=== PATIENT | male | born 1940 | race Caucasian/White ===

== ENCOUNTER 2019-10-24 15:14 | Inpatient (IN) | payer OTHER ==
--- NOTE | 2019-10-24 15:29 | PDOC ---
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 Pt had fever 101 this morning, emesisx1 yesterday . Epigastric pain constant, not exacerbated by meals or exertion. Pt drinks alcohol currently. Pt has been taking 650mg tylenol x1 everyday for the past few days without pain relief. Currently denies cough, nausea, chest pain, SOB, urinary changes, diarrhea/constipation. Past History - Past Medical History Allergies/Adverse Reactions: Allergies Allergy/AdvReac Type Severity Reaction Status Date / Time No Known Allergies Allergy Verified 10/24/19 16:18 Home Medications: Ambulatory Orders Folic Acid 1 mg PO DAILY 10/24/19 Furosemide 20 mg PO DAILY 10/24/19 Glipizide 10 mg PO BID 10/24/19 Metoprolol Succinate [Toprol Xl] 25 mg PO DAILY 10/24/19 Anemia: Yes Asthma: No Cancer: No Cardiac Disorders: No CVA: No COPD: No CHF: No Dementia: No Diabetes: Yes GI Disorders: Yes Disorders: No HTN: No Hypercholesterolemia: No Liver Disease: Yes Seizures: No Thyroid Disease: No - Surgical History Abdominal Surgery: No Appendectomy: No Cholecystectomy: No Lung Surgery: No Neurologic Surgery: No Orthopedic Surgery: No - Immunization History Immunization Up to Date: Yes - Psycho Social/Smoking Cessation Hx Smoking History: Never smoked Have you smoked in the past 12 months: No Information on smoking cessation initiated: No Hx Alcohol Use: No Drug/Substance Use Hx: No Substance Use Type: Alcohol Hx Substance Use Treatment: No Review of Systems - Review of Systems Able to Perform ROS?: Yes Constitutional: No: Chills, Fever HEENTM: No: Eye Pain, Nose Pain, Throat Pain, Mouth Pain Respiratory: No: Cough, Shortness of Breath Cardiac (ROS): No: Chest Pain, Palpitations, Syncope ABD/GI: Yes: Poor Appetite. No: Abdominal Distended, Constipated, Diarrhea, Nausea, Vomiting : No: Burning, Dysuria, Discharge, Frequency Musculoskeletal: No: Joint Pain, Neck Pain Integumentary: No: Bruising, Flushing, Lesions Neurological: No: Headache, Seizure, Tingling Psychiatric: No: Anxiety, Depression, Stressors Endocrine: No: Excessive Sweating, Flushing, Intolerance to Cold, Intolerance to Heat Hematologic/Lymphatic: No: Anemia, Easy Bleeding *Physical Exam - Vital Signs Last Vital Signs Temp Pulse Resp BP Pulse Ox 98.5 F 79 16 119/73 98 10/24/19 15:22 10/24/19 15:22 10/24/19 15:22 10/24/19 15:22 10/24/19 15:22 - Physical Exam General Appearance: Yes: Nourished, Appropriately Dressed, Mild Distress HEENT: positive: EOMI, ILA, Normal Voice, Scleral Icterus (R), Scleral Icterus (L), Hearing Grossly Normal. negative: Nasal Congestion, Rhinorrhea Respiratory/Chest: positive: Lungs Clear, Normal Breath Sounds. negative: Chest Tender, Respiratory Distress, Crackles, Rales, Rhonchi, Stridor, Wheezing Cardiovascular: positive: S1, S2, Tachycardia, Systolic Murmur, Irregular Gastrointestinal/Abdominal: positive: Normal Bowel Sounds, Tender (moderate tenderness L pelvic, mild tenderness epigastric), Distended (mild), Guarding (L pelvic), Rebound (L pelvic), Other (neg posada sign) Musculoskeletal: positive: CVA Tenderness (R). negative: CVA Tenderness (L) Integumentary: positive: Jaundice Neurologic: positive: back maker II-XII NML intact, Fully Oriented, Alert, Normal Mood/ Affect, Normal Response, Motor Strength 5/5, Responsive, Other (neg asterixis). 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 Ddx: cholangitis/cholelithiasis (fever, jaundice, stones on US) vs cirrhosis complication (elevated LFTs, bili) vs UTI (pelvic/CVA tenderness). Pt also has new onset afib w RVR on EKG, pt denying chest pain/SOB. HR ranging from 90-120. Low concern for pancreatitis (normal lipase) vs ACS (pain not changed w exertion , no ST changes on EKG) vs hepatic encephalopathy (pt AOx3, neg NH3). Trop likely d/t demand from a fib. Given 2L NS (30ml/kg = 2040mL), folic acid, thamine, 2 morphine, zofran w some pain relief. - pending 2nd trop, UA, CBC results (1st hemolyzed) - pending RUQ US, CT A/P Dispo dependent on imaging. Anticipate admit for possible cholelithiasis requiring cholecystectomy, new onset a fib Signed off to night team Discharge - Discharge Information Problems reviewed: Yes Clinical Impression/Diagnosis: Epigastric pain, Jaundice Condition: Stable - Follow up/Referral - Patient Discharge Instructions - Post Discharge Activity
[2019-10-24] MEDS ORDERED: morphine CARPU-JECT 4 MG/1 ML DISP.SYRIN IVPUSH ONE (15:53)
[2019-10-24] MEDS ORDERED: SODIUM CHLORIDE 0.9% 500 ML INFUS.BAG IV ONE ×3 (15:53→23:00)
[2019-10-24] MEDS ORDERED: ONDANSETRON 4 MG/2 ML VIAL IVPUSH ONE (16:19)
[2019-10-24] MEDS ORDERED: MORPHINE SULFATE 2 MG/ML VIAL ONE (16:24)
[2019-10-24] MEDS ORDERED: ONDANSETRON 4 MG/2 ML VIAL ONE (16:24)
--- NOTE | 2019-10-24 16:26 | PDOC ---
Documentation entered by Chitra Martinez SCRIBE, acting as scribe for Mariola Ovalle DO. Mariola Ovalle DO: This documentation has been prepared by the Juan noland Joy, SCRIBE, under my direction and personally reviewed by me in its entirety. I confirm that the documentation accurately reflects all work, treatment, procedures, and medical decision making performed by me. Attending Attestation - Resident Resident Name: Vasquez Mcdaniels - ED Attending Attestation I have performed the following: I have examined & evaluated the patient, The case was reviewed & discussed with the resident, I agree w/resident's findings & plan, Exceptions are as noted - HPI HPI: 10/24/19 16:32 The patient is an 78 year old male, with no significant PMH of gallstones, cirrhosis (hx of alcohol abuse), DM who presents to the emergency department with epigastric pain, fever, and chills for the last 3 days. As per patient, he stopped drinking but started again about a year ago and hides it from his family. Patient states he now drinks frequently. Patient states he has not seen his GI doctor in the [place] for the last 5 years. Patients family member reports a fever this morning of 101 F with x1 episode of nausea. Patient also adds he has had x1 episode of NBNB emesis yesterday. Patient reports having loose stool today but stool has been yellow for the last 3 days. Allergies: NKA - Physicial Exam PE: 10/24/19 16:20 gen: awake, alert, oriented, jaundiced heent: icterus, eomi, mmm neck: supple heart: +s1s2 tachy lungs: cta b/l abd: soft, nt/nd +bs ext: no c/c/e, no asterixis neuro: cn ii-xii grossly intact, FROM of all extremities, no focal deficits - Medical Decision Making 10/24/19 16:23 a/p: 78 yo male with n/v yesterday and fever at home of 101 today -pt arrives jaundiced, has been jaundiced x 3 days -c/o chills -nbnb vomitus -gallstones on ultrasound -hx of cirrhosis- has not followed with GI in over 5 years, jaundice had resolved, but per daughter she believes the patient is drinking again at home- not daily -not altered -pt denies abd pain at this time -no cough or dysuria -will send labs, ultrasound, ct, ivf hydration -will monitor and reassess 10/24/19 16:27 pt in afib 10/24/19 16:31 pt with new onset afib, suspect secondary to electrolytes, will monitor on tele Heart Score/ECG Review - ECG Intrepretation Comment:: 10/24/19 16:26 afibat 113, l axis, no acute st/t wave findings
[2019-10-24] MEDS ORDERED: THIAMINE HCL 200 MG/2 ML VIAL IVPB ONE (16:28)
[2019-10-24] MEDS ORDERED: FOLIC ACID 1 MG TABLET (FP) PO ONE (16:28)
[2019-10-24] MEDS ORDERED: FOLIC ACID 1 MG TABLET (FP) ONE (16:47)
[2019-10-24] MEDS ORDERED: THIAMINE HCL 200 MG/2 ML VIAL ONE (16:47)
[2019-10-24 16:52] LABS: VENOUS PC02 39.1 mmHg (38-52); VENOUS PH 7.41 (7.31-7.41); VENOUS PO2 < 49 mmHg (28-48)
[2019-10-24 17:06] LABS: INR 1.7 (0.83-1.09); PROTHROMBIN TIME (PATIENT) 20.2 SEC (9.7-13.0)
[2019-10-24 17:08] LABS: ACTIVATED PTT 36.1 SECONDS (25.2-36.5)
[2019-10-24 17:24] LABS: ALBUMIN 2.9 g/dl (3.4-5.0); BILIRUBIN,TOTAL 10.7 mg/dL (0.2-1); BLOOD UREA NITROGEN 37.3 mg/dL (7-18); CALCIUM 8.9 mg/dL (8.5-10.1); CREATININE 1.3 mg/dL (0.55-1.3); POTASSIUM 3.9 mmol/L (3.5-5.1); TOT PROT 6.1 g/dl (6.4-8.2)
[2019-10-24 17:36] LABS: LIPASE 49 U/L (73-393)
[2019-10-24 18:44] LABS: BASO % 0.2 % (0-2.0); EOS % 0.8 % (0-4.5); HEMATOCRIT 32.4 % (35.4-49); HEMOGLOBIN 10.5 GM/dL (11.7-16.9); LYMPH % 8.9 % (8-40); MCH 22.1 pg (25.7-33.7); MCHC 32.4 g/dl (32.0-35.9); MEAN CELL VOLUME 68.2 fl (80-96); MEAN PLT VOLUME 10.6 fl (7.5-11.1); MONO % 10.5 % (3.8-10.2); NEUT % 79.6 % (42.8-82.8); RBC 4.75 M/mm3 (4.00-5.60); RDW 16.4 % (11.9-15.9); WHITE BLOOD COUNT 4.7 K/mm3 (4.0-10.0)
[2019-10-24 18:50] LABS: EPI CELLS 2.3 /HPF (0-5/HPF); HYALINE CASTS 7 /lpf (0-8); URINE APPEARANCE CLEAR; URINE BACTERIA 25.5 /hpf (NEGATIVE); URINE BILIRUBIN 2+ (NEGATIVE); URINE COLOR DK YELLOW; URINE GLUCOSE (UA) 3+ (NEGATIVE); URINE KETONE TRACE (NEGATIVE); URINE LEUK ESTERASE TRACE (NEGATIVE); URINE NITRITE POSITIVE (NEGATIVE); URINE PROTEIN 1+ (NEGATIVE); URINE RBC 6 /hpf (0-4); URINE WBC 3 /hpf (0-5)
--- NOTE | 2019-10-24 19:14 | PDOC ---
*Physical Exam - Vital Signs Last Vital Signs Temp Pulse Resp BP Pulse Ox 98.5 F 79 16 119/73 98 10/24/19 15:22 10/24/19 15:22 10/24/19 15:22 10/24/19 15:22 10/24/19 15:22 ED Treatment Course - LABORATORY CBC & Chemistry Diagram: 10/24/19 18:20 10/24/19 16:40 - ADDITIONAL ORDERS Additional order review: Laboratory Results 10/24/19 10/24/19 10/24/19 18:20 16:40 16:40 PT with INR INR PTT (Actin FS) VBG pH 7.41 POC VBG pCO2 39.1 POC VBG pO2 < 49 H VBG HCO3 24.5 VBG O2 Sat (Johan) 37.6 L VBG Base Excess 0.5 Sodium Potassium Chloride Carbon Dioxide Anion Gap BUN Creatinine Est GFR (CKD-EPI)AfAm Est GFR (CKD-EPI)NonAf Random Glucose Lactic Acid Calcium Total Bilirubin AST ALT Alkaline Phosphatase Ammonia Creatine Kinase Troponin I Total Protein Albumin Lipase Urine Color Dk yellow Urine Appearance Clear Urine pH 5.0 Ur Specific [place] 1.034 Urine Protein 1+ H Urine Glucose (UA) 3+ H Urine Ketones Trace H Urine Blood 1+ H Urine Nitrite Positive H Urine Bilirubin 2+ H Urine Urobilinogen 2.0 Ur Leukocyte Esterase Trace Urine WBC (Auto) 3 Urine RBC (Auto) 6 Urine Casts (Auto) 7 U Epithel Cells (Auto) 2.3 Urine Bacteria (Auto) 25.5 Alcohol, Quantitative Blood Type A POSITIVE Antibody Screen Negative 10/24/19 10/24/19 10/24/19 16:40 16:40 16:40 PT with INR 20.20 H INR 1.70 H PTT (Actin FS) 36.1 VBG pH POC VBG pCO2 POC VBG pO2 VBG HCO3 VBG O2 Sat (Johan) VBG Base Excess Sodium 137 Potassium 3.9 Chloride 103 Carbon Dioxide 24 Anion Gap 10 BUN 37.3 H Creatinine 1.3 Est GFR (CKD-EPI)AfAm 59.73 Est GFR (CKD-EPI)NonAf 51.53 Random Glucose 253 H Lactic Acid Calcium 8.9 Total Bilirubin 10.7 H AST 271 H ALT 267 H Alkaline Phosphatase 79 Ammonia Creatine Kinase 115 Troponin I 0.12 H Total Protein 6.1 L Albumin 2.9 L Lipase 49 L Urine Color Urine Appearance Urine pH Ur Specific [place] Urine Protein Urine Glucose (UA) Urine Ketones Urine Blood Urine Nitrite Urine Bilirubin Urine Urobilinogen Ur Leukocyte Esterase Urine WBC (Auto) Urine RBC (Auto) Urine Casts (Auto) U Epithel Cells (Auto) Urine Bacteria (Auto) Alcohol, Quantitative < 3 Blood Type Antibody Screen 10/24/19 10/24/19 16:35 16:30 PT with INR INR PTT (Actin FS) VBG pH POC VBG pCO2 POC VBG pO2 VBG HCO3 VBG O2 Sat (Johan) VBG Base Excess Sodium Potassium Chloride Carbon Dioxide Anion Gap BUN Creatinine Est GFR (CKD-EPI)AfAm Est GFR (CKD-EPI)NonAf Random Glucose Lactic Acid 4.5 H* Calcium Total Bilirubin AST ALT Alkaline Phosphatase Ammonia < 10 L Creatine Kinase Troponin I Total Protein Albumin Lipase Urine Color Urine Appearance Urine pH Ur Specific [place] Urine Protein Urine Glucose (UA) Urine Ketones Urine Blood Urine Nitrite Urine Bilirubin Urine Urobilinogen Ur Leukocyte Esterase Urine WBC (Auto) Urine RBC (Auto) Urine Casts (Auto) U Epithel Cells (Auto) Urine Bacteria (Auto) Alcohol, Quantitative Blood Type Antibody Screen 10/24/19 10/24/19 18:20 16:10 RBC 4.75 Cancelled MCV 68.2 L Cancelled MCHC 32.4 Cancelled RDW 16.4 H Cancelled MPV Cancelled Neutrophils % 79.6 Cancelled Lymphocytes % 8.9 Cancelled Monocytes % 10.5 H Cancelled Eosinophils % 0.8 Cancelled Basophils % 0.2 Cancelled - Medications Given in the ED: ED Medications Discontinued Medications Generic Name Dose Route Start Last Admin Trade Name Tamia PRN Reason Stop Dose Admin Folic Acid 1 mg 10/24/19 16:28 10/24/19 16:55 Folic Acid - PO 10/24/19 16:29 1 mg ONCE ONE Administration Morphine Sulfate 2 mg 10/24/19 15:53 10/24/19 16:40 Morphine Injection - IVPUSH 10/24/19 15:54 2 mg ONCE ONE Administration Ondansetron HCl 4 mg 10/24/19 16:19 10/24/19 16:40 Zofran Injection IVPUSH 10/24/19 16:20 4 mg NOW ONE Administration Sodium Chloride 1,000 ml 10/24/19 15:53 10/24/19 16:40 Normal Saline - IV 10/24/19 15:54 1,000 ml ONCE ONE Administration Sodium Chloride 1,000 ml 10/24/19 17:50 10/24/19 17:52 Normal Saline - IV 10/24/19 17:51 1,000 ml ONCE ONE Administration Thiamine HCl 100 mg 10/24/19 16:28 10/24/19 16:55 Vitamin B1 Injection - IVPB 10/24/19 16:29 100 mg ONCE ONE Administration Medical Decision Making - Medical Decision Making 10/24/19 19:08 PCP: 78y M cirrhosis 2/2 EOTH, cholelithiasis, DM presenting with abd pain for 4 days. Jaundiced, elevated LFTs, fever, RUQ pain, negative posada, normal mentation, normal BP Afib RVR, new No ASA given hematuria F/u CT, RUQ F/u CBC, UA Second trop (initial 0.12, likely demand, no SOB/CP) Gallstones on bedside US Pre-op labs already ordered S/p 2L IVF (NS) 2 Morphine, Zofran HDS 10/24/19 19:23 - Thrombocytopenia plts 16 - No leukocytosis, at baseline anemia - Lact 4.5 - VBG unremarkable - LFTs elevated - INR 1.70 - Repeat troponin / lactate pending - UA with evidence of UTI and hematuria, pt denies symptoms - daughter reports he would never admit to symptoms 10/24/19 20:05 - Spoke with Dr. Lopez, Cardiology, patient is rate controlled and HDS, no need for anticoagulation in setting of rate control and thrombocytopenia, will see the patient tomorrow. 10/24/19 20:10 - Spoke with Hematology / Oncology train control electronic technician, recommended LDH, Haptoglobin, B12, Folate, Direct Bilirubin studies, Pt will likely require transfusion, especially if going to the OR 10/24/19 20:55 - Ceftriaxone 1g IV for UTI - 2U Plts given hematuria, cirrhosis (reduced synthetic function), and likely invasive procedure in near future - Pt consented for Plt transfusion 10/24/19 22:04 - US Resulted with known chronic hepatic parenchymal disease and "cholelithiasis , with thickened gallbladder wall, at which cholecystitis cannot be excluded. Nuclear hepatobiliary scan may be helpful for further evaluation" - CT with pericholecystic edema, minimal wall thickening -Patient currently receiving plts, ABX -Cardiology on board, Dr. Lopez -Heme/Onc on board, Dr. Valle service -F/u Surgery in the AM, no surgery train control electronic technician, plt too low for acute intervention overnight -Patient is hemodynamically stable at this time Dispo: Admit Tele 10/24/19 23:05 - Lact down-trended to 2.5, additional 1L IVF ordered - Troponin down to 0.09 s/p IVF - Intermittently tachy to 120s, asymptomatic Admitted Tele, sign-out given 10/24/19 23:39 -Call placed to [facility] for addendum to Brennan MCDONALD for commentary on portal vein -In house US reports that images sent to [facility] did contain PV evaluation Discharge - Discharge Information Problems reviewed: Yes Clinical Impression/Diagnosis: Epigastric pain, Jaundice, Troponin I above reference range, Lactic acidosis, New onset a-fib Cholelithiasis Qualifiers: Cholelithiasis location: gallbladder Cholecystitis presence: with cholecystitis Cholecystitis acuity: unspecified acuity Biliary obstruction: without biliary obstruction Qualified Code(s): K80.10 - Calculus of gallbladder with chronic cholecystitis without obstruction UTI (urinary tract infection) Qualifiers: Urinary tract infection type: site unspecified Hematuria presence: with hematuria Qualified Code(s): N39.0 - Urinary tract infection, site not specified Condition: Stable - Admission Yes - Follow up/Referral - Patient Discharge Instructions - Post Discharge Activity
[2019-10-24 19:20] LABS: PLATELET COUNT 16 K/MM3 (134-434)
[2019-10-24 19:21] LABS: ANISOCYTOSIS 1+; OVALOCYTE 1+; TARGET CELLS 1+
[2019-10-24 19:22] LABS: PLATELET ESTIMATE DECREASED
[2019-10-24] MEDS ORDERED: CEFTRIAXONE 1 GM/50 ML BAG ONE (21:23)
[2019-10-24 21:43] LABS: BILIRUBIN,DIRECT 7.7 mg/dL (0.0-0.2)
--- NOTE | 2019-10-24 23:15 | PN ---
Teaching Attending Note Name of Resident: Padmini Marie ATTENDING PHYSICIAN STATEMENT I saw and evaluated the patient. I reviewed the resident's note and discussed the case with the resident. I agree with the resident's findings and plan as documented. SUBJECTIVE: Patient is an 78 year old man a PMH of Gallstones, Thalassemia minor, Alcohol abuse, Alcoholic liver disease, Cirrhosis and NIDDM who presents to the ER with epigastric pain, fever, and chills for the last 3 days. As per patient, he stopped drinking but started again about a year ago and hides it from his family. Patient states he now drinks frequently. Patient states he has not seen his GI doctor in the [place] for the last 5 years. Patients family member reports a fever this morning of 101 F with associated nausea. Patient also adds he had one episode of NBNB emesis yesterday and loose yellow stool. No recent travel or sick contacts. Denies tobacco or illicit drug use. OBJECTIVE: Alert Vital Signs Period Temp Pulse Resp BP Sys/Negron Pulse Ox Last 24 Hr 98.5 F 79-128 16-20 108-119/73-77 94-98 HEENT: ++Jaundice, eye redness or discharge, PERRLA, EOMI. Normocephalic, atraumatic. External ears are normal and hearing is grossly intact. No nasal discharge. Neck: Supple, nontender. No palpable adenopathy or thyromegaly. No JVD Chest: Good effort. Clear to auscultation and percussion. Heart: Regular. No S3, rub or murmur Abdomen: Not distended, soft, nontender and no HSM. No rebound or guarding. Normal bowel sounds. Ext: Peripheral pulses intact. No leg edema. Skin: Warm and dry. No petechiae, rash or ecchymosis. Neuro: Alert. Oriented x3. No asterexis or tremors. CN 2-12 grossly intact. Sensation grossly intact in all four extremities and DTR are symmetric. Psych: Appropriate mood and affect. Good insight. Home Medications Medication Instructions Recorded Folic Acid 1 mg PO DAILY 10/24/19 Furosemide 20 mg PO DAILY 10/24/19 Glipizide 10 mg PO BID 10/24/19 Metoprolol Succinate [Toprol Xl] 25 mg PO DAILY 10/24/19 Abnormal Lab Results 12/22/19 12/22/19 12/22/19 16:30 16:35 16:40 Hgb Hct MCV MCH RDW Plt Count Monocytes % PT with INR INR POC VBG pO2 VBG O2 Sat (Johan) BUN Random Glucose Lactic Acid 4.5 H* Total Bilirubin Direct Bilirubin AST ALT Ammonia < 10 L Troponin I 0.12 H Total Protein Albumin Lipase 49 L Vitamin B12 Serum Folate Urine Protein Urine Glucose (UA) Urine Ketones Urine Blood Urine Nitrite Urine Bilirubin 10/24/19 10/24/19 10/24/19 16:40 16:40 16:40 Hgb Hct MCV MCH RDW Plt Count Monocytes % PT with INR 20.20 H INR 1.70 H POC VBG pO2 < 49 H VBG O2 Sat (Johan) 37.6 L BUN 37.3 H Random Glucose 253 H Lactic Acid Total Bilirubin 10.7 H Direct Bilirubin AST 271 H ALT 267 H Ammonia Troponin I Total Protein 6.1 L Albumin 2.9 L Lipase Vitamin B12 Serum Folate Urine Protein Urine Glucose (UA) Urine Ketones Urine Blood Urine Nitrite Urine Bilirubin 10/24/19 10/24/19 10/24/19 18:20 18:20 20:45 Hgb 10.5 L Hct 32.4 L MCV 68.2 L MCH 22.1 L RDW 16.4 H Plt Count 16 L* Monocytes % 10.5 H PT with INR INR POC VBG pO2 VBG O2 Sat (Johan) BUN Random Glucose Lactic Acid Total Bilirubin Direct Bilirubin AST ALT Ammonia Troponin I 0.09 H Total Protein Albumin Lipase Vitamin B12 Serum Folate Urine Protein 1+ H Urine Glucose (UA) 3+ H Urine Ketones Trace H Urine Blood 1+ H Urine Nitrite Positive H Urine Bilirubin 2+ H 10/24/19 10/24/19 10/24/19 20:45 20:45 20:45 Hgb Hct MCV MCH RDW Plt Count Monocytes % PT with INR INR POC VBG pO2 VBG O2 Sat (Johan) BUN Random Glucose Lactic Acid 2.5 H* Total Bilirubin Direct Bilirubin 7.7 H AST ALT Ammonia Troponin I Total Protein Albumin Lipase Vitamin B12 988 H Serum Folate 18 H Urine Protein Urine Glucose (UA) Urine Ketones Urine Blood Urine Nitrite Urine Bilirubin ASSESSMENT AND PLAN: 1. Cholelithiasis with Possible Cholecystitis - Abdomen/Pelvis CT and Sonogram of the abdomen showed cholelithiasis and findings suggestive of cholecystitis. He reported fever and chills at home and lactic acid is elevated. Sepsis work up done. Will treat with IV Rocephin and Flagyl, IV NS and consult GI and ID. Get hepatitis serology, HIDA scan and trend LFTs and lactic acid. Monitor and replete electrolytes and avoid factors that may precipitate hepatic encephalopathy. CXR shows hilar prominence and no new infiltrates. Low platelets due to alcoholism and liver disease - getting platelet transfusion. Consult Hematology. EKG shows Afib with rate of 113 and LAD. Continue metoprolol for Afib rate control, monitor on telemetry, get ECHO and consult Cardiology. Elevated troponin likely due to demand ischemia - will trend troponin to rule out ACS. Will continue comprehensive care for all of patients comorbid conditions. 2. Hypoalbuminemia - Possibly due to combined effects of malnutrition and inflammation associated with comorbid chronic conditions. Will ensure adequate dietary protein intake and also consult mortgage broker. 3. DM For now, we will hold the home diabetes drugs and implement sliding scale insulin regimen. Provide comprehensive diabetes care with patient teaching and counseling about the importance of adherence to prescribed diabetes regimen, euglycemia, eye care and foot care. 4. JOHNATHON - Has risk factors for JOHNATHON including hepatorenal syndrome. Will hydrate and monitor urine output. Will consult nephrology and avoid nephrotoxic agents such as NSAIDS, aminoglycosides, contrast dyes and certain Alternative medicine products. 5. Anemia with low MCV - Likely mutifactorial including thalassemia minor. Will do basic anemia work up including serial stool guaiacs, reticulocyte count and iron studies. 6. Alcohol abuse - Implement CIWA ativan alcohol withdrawal protocol and do neurochecks. Implement seizure, fall and aspiration precautions. Treat with thiamine and folic acid and monitor electrolytes (Ca,Mg,K,P). Counseled patient about abstaining from alcohol. Will consult patient relations specialist and refer to alcohol detox upon discharge. 7. DVT prophylaxis - Platelets too low for either SCD or Heparin. Will do early ambulation once safe. 8. Advance directives - Full code
--- NOTE | 2019-10-24 23:57 | HP ---
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 Per , patient has been having suggestive fever for 2 days with a measured temperature of 101F this morning . The RUQ pain is not exacerbated or relieved with food but associated with 2 episodes of nausea and NBNB vomiting. states patient has been drinking more than usual in the past few months, but does not know the exact amount as patient tends to hide his drinking. Per , patient has had bilateral yellow conjunctiva for the past 10 days, yellowing of the skin and dark urine for 3 days. Patient normally has poor appetite, but does eat a large breakfast which comprises of fries and eggs. His glucose has been around 250- 290 for the past few days; according to daughter, Patient takes Glipizide 1x day rather than twice a day. He denies any diarrhea, constipation, or bowel changes, chest pain, shortness of breath, or other problems at this time. He last had a GI appointment in June with stable findings. Also took tylenol at home to alleviate pain. ER course was notable for: (1) CBC with anemia with MCV of 68.2 and thrombocytopenia at 16. CMP with elevated BUN 37.3 and BG 253, Tbil 10.7 w/direct 7.7, AST 271/ALT 267, ALP 79, LA 4.5 -> 2.5, trop 0.12 ->0.09, lipase 49, PT/INR 20.2/1.7, albumin 2.9 (2) EKG with new AFIB with RVR, L axis deviation, HR 113, QTc 403. 2L NS and 1 bag of NS@ 100cc/hr. ceftriaxone. UA with 1+ protein, 3+ gluc, trace ketones, 1+ blood, 2+ bili, positive nitrites. (3) Cardio Dr Lopez consulted and Heme/Onc Dr Valle consulted. No surgery dictaphone mechanic available. US Resulted with known chronic hepatic parenchymal disease and "cholelithiasis, with thickened gallbladder wall, at which cholecystitis cannot be excluded. Nuclear hepatobiliary scan may be helpful for further evaluation" - CT with pericholecystic edema, minimal wall thickening Recent Travel: none PAST MEDICAL HISTORY: as above PAST SURGICAL HISTORY: right hip replacement with metal mery placements. b/l inguinal repair Social History: Smoking: none Alcohol: former heavy drinker but he continues to drink about 6 beers or so during the week Drugs: none Allergies No Known Allergies Allergy (Verified 10/24/19 16:18) HOME MEDICATIONS: Home Medications Medication Instructions Recorded Folic Acid 1 mg PO DAILY 10/24/19 Furosemide 20 mg PO DAILY 10/24/19 Glipizide 10 mg PO BID 10/24/19 Metoprolol Succinate [Toprol Xl] 25 mg PO DAILY 10/24/19 REVIEW OF SYSTEMS CONSTITUTIONAL: fever, chills , loss of appetite Absent: diaphoresis, generalized weakness, malaise, weight change HEENT: Absent: rhinorrhea, nasal congestion, throat pain, throat swelling, difficulty swallowing, mouth swelling, ear pain, eye pain, visual changes CARDIOVASCULAR: Absent: chest pain, syncope, palpitations, irregular heart rate, lightheadedness , peripheral edema RESPIRATORY: Absent: cough, shortness of breath, dyspnea with exertion, orthopnea, wheezing, stridor, hemoptysis GASTROINTESTINAL:abdominal pain, nausea, vomiting Absent: abdominal distension, diarrhea, constipation, melena, hematochezia GENITOURINARY: Absent: dysuria, frequency, urgency, hesitancy, hematuria, flank pain, genital pain MUSCULOSKELETAL: Absent: myalgia, arthralgia, joint swelling, back pain, neck pain SKIN: Absent: rash, itching, pallor HEMATOLOGIC/IMMUNOLOGIC: Absent: easy bleeding, easy bruising, lymphadenopathy, frequent infections ENDOCRINE: Absent: unexplained weight gain, unexplained weight loss, heat intolerance, cold intolerance NEUROLOGIC: Absent: headache, focal weakness or paresthesias, dizziness, unsteady gait, seizure, mental status changes, bladder or bowel incontinence PSYCHIATRIC: Absent: anxiety, depression, suicidal or homicidal ideation, hallucinations. PHYSICAL EXAMINATION Vital Signs - 24 hr 10/24/19 10/24/19 10/24/19 15:22 20:27 22:15 Temperature 98.5 F Pulse Rate 79 Pulse Rate [ 120 H 128 H Apical] Respiratory 16 20 20 Rate Blood Pressure 119/73 Blood Pressure 111/73 108/77 [Left Arm] O2 Sat by Pulse 98 94 L 96 Oximetry (%) GENERAL: Awake, alert, and fully oriented, in no acute distress. HEAD: Normal with no signs of trauma. EYES: Pupils equal, round and reactive to light, extraocular movements intact, sclera icteric. No lid lag. EARS, NOSE, THROAT: oropharynx clear without exudates. dry mucous membranes with icteris. NECK: Normal range of motion, supple without lymphadenopathy, JVD, or masses. LUNGS: Breath sounds equal, clear to auscultation bilaterally. No wheezes, and no crackles. No accessory muscle use. HEART: Regular rate and rhythm, normal S1 and S2 with 3/6 systolic ejection murmur, rub or gallop. ABDOMEN: Soft,RUQ tenderness, not distended, normoactive bowel sounds, no guarding, no rebound, no masses. MUSCULOSKELETAL: Normal range of motion at all joints. No bony deformities or tenderness. UPPER EXTREMITIES: 2+ pulses, warm, well-perfused. No cyanosis. No clubbing. No peripheral edema. LOWER EXTREMITIES: 2+ pulses, warm, well-perfused. No calf tenderness. No peripheral edema. NEUROLOGICAL: Cranial nerves II-XII intact. Normal speech. motor strength 5/5 sensory intact. PSYCHIATRIC: Cooperative. Good eye contact. Appropriate mood and affect. SKIN: Warm, dry Laboratory Results - last 24 hr 10/24/19 10/24/19 10/24/19 16:10 16:30 16:35 WBC Cancelled Corrected WBC (auto) Cancelled RBC Cancelled Hgb Cancelled Hct Cancelled MCV Cancelled MCH Cancelled MCHC Cancelled RDW Cancelled Plt Count Cancelled MPV Cancelled Absolute Neuts (auto) Cancelled Neutrophils % Cancelled Neutrophils % (Manual) Band Neutrophils % Lymphocytes % Cancelled Lymphocytes % (Manual) Monocytes % Cancelled Monocytes % (Manual) Eosinophils % Cancelled Basophils % Cancelled Nucleated RBC % Cancelled Hypochromia Platelet Estimate Cancelled Platelet Comment Cancelled Anisocytosis Microcytosis Target Cells Ovalocytes PT with INR INR PTT (Actin FS) VBG pH POC VBG pCO2 POC VBG pO2 VBG HCO3 VBG O2 Sat (Johan) VBG Base Excess Sodium Potassium Chloride Carbon Dioxide Anion Gap BUN Creatinine Est GFR (CKD-EPI)AfAm Est GFR (CKD-EPI)NonAf Random Glucose Lactic Acid 4.5 H* Calcium Total Bilirubin Direct Bilirubin AST ALT Alkaline Phosphatase Ammonia < 10 L LD Total Creatine Kinase Troponin I Total Protein Albumin Lipase Vitamin B12 Serum Folate Urine Color Urine Appearance Urine pH Ur Specific [place] Urine Protein Urine Glucose (UA) Urine Ketones Urine Blood Urine Nitrite Urine Bilirubin Urine Urobilinogen Ur Leukocyte Esterase Urine WBC (Auto) Urine RBC (Auto) Urine Casts (Auto) U Epithel Cells (Auto) Urine Bacteria (Auto) Alcohol, Quantitative Blood Type Antibody Screen 10/24/19 10/24/19 10/24/19 16:40 16:40 16:40 WBC Corrected WBC (auto) RBC Hgb Hct MCV MCH MCHC RDW Plt Count MPV Absolute Neuts (auto) Neutrophils % Neutrophils % (Manual) Band Neutrophils % Lymphocytes % Lymphocytes % (Manual) Monocytes % Monocytes % (Manual) Eosinophils % Basophils % Nucleated RBC % Hypochromia Platelet Estimate Platelet Comment Anisocytosis Microcytosis Target Cells Ovalocytes PT with INR 20.20 H INR 1.70 H PTT (Actin FS) 36.1 VBG pH POC VBG pCO2 POC VBG pO2 VBG HCO3 VBG O2 Sat (Johan) VBG Base Excess Sodium 137 Potassium 3.9 Chloride 103 Carbon Dioxide 24 Anion Gap 10 BUN 37.3 H Creatinine 1.3 Est GFR (CKD-EPI)AfAm 59.73 Est GFR (CKD-EPI)NonAf 51.53 Random Glucose 253 H Lactic Acid Calcium 8.9 Total Bilirubin 10.7 H Direct Bilirubin AST 271 H ALT 267 H Alkaline Phosphatase 79 Ammonia LD Total Creatine Kinase 115 Troponin I 0.12 H Total Protein 6.1 L Albumin 2.9 L Lipase 49 L Vitamin B12 Serum Folate Urine Color Urine Appearance Urine pH Ur Specific [place] Urine Protein Urine Glucose (UA) Urine Ketones Urine Blood Urine Nitrite Urine Bilirubin Urine Urobilinogen Ur Leukocyte Esterase Urine WBC (Auto) Urine RBC (Auto) Urine Casts (Auto) U Epithel Cells (Auto) Urine Bacteria (Auto) Alcohol, Quantitative < 3 Blood Type Antibody Screen 10/24/19 10/24/19 10/24/19 16:40 16:40 18:20 WBC 4.7 Corrected WBC (auto) RBC 4.75 Hgb 10.5 L Hct 32.4 L MCV 68.2 L MCH 22.1 L MCHC 32.4 RDW 16.4 H Plt Count 16 L* MPV 10.6 Absolute Neuts (auto) 3.8 Neutrophils % 79.6 Neutrophils % (Manual) 80.0 Band Neutrophils % 2.0 Lymphocytes % 8.9 Lymphocytes % (Manual) 8.0 Monocytes % 10.5 H Monocytes % (Manual) 10 Eosinophils % 0.8 Basophils % 0.2 Nucleated RBC % 0 Hypochromia 2+ Platelet Estimate Decreased Platelet Comment Anisocytosis 1+ Microcytosis 1+ Target Cells 1+ Ovalocytes 1+ PT with INR INR PTT (Actin FS) VBG pH 7.41 POC VBG pCO2 39.1 POC VBG pO2 < 49 H VBG HCO3 24.5 VBG O2 Sat (Johan) 37.6 L VBG Base Excess 0.5 Sodium Potassium Chloride Carbon Dioxide Anion Gap BUN Creatinine Est GFR (CKD-EPI)AfAm Est GFR (CKD-EPI)NonAf Random Glucose Lactic Acid Calcium Total Bilirubin Direct Bilirubin AST ALT Alkaline Phosphatase Ammonia LD Total Creatine Kinase Troponin I Total Protein Albumin Lipase Vitamin B12 Serum Folate Urine Color Urine Appearance Urine pH Ur Specific [place] Urine Protein Urine Glucose (UA) Urine Ketones Urine Blood Urine Nitrite Urine Bilirubin Urine Urobilinogen Ur Leukocyte Esterase Urine WBC (Auto) Urine RBC (Auto) Urine Casts (Auto) U Epithel Cells (Auto) Urine Bacteria (Auto) Alcohol, Quantitative Blood Type A POSITIVE Antibody Screen Negative 10/24/19 10/24/19 10/24/19 18:20 20:45 20:45 WBC Corrected WBC (auto) RBC Hgb Hct MCV MCH MCHC RDW Plt Count MPV Absolute Neuts (auto) Neutrophils % Neutrophils % (Manual) Band Neutrophils % Lymphocytes % Lymphocytes % (Manual) Monocytes % Monocytes % (Manual) Eosinophils % Basophils % Nucleated RBC % Hypochromia Platelet Estimate Platelet Comment Anisocytosis Microcytosis Target Cells Ovalocytes PT with INR INR PTT (Actin FS) VBG pH POC VBG pCO2 POC VBG pO2 VBG HCO3 VBG O2 Sat (Johan) VBG Base Excess Sodium Potassium Chloride Carbon Dioxide Anion Gap BUN Creatinine Est GFR (CKD-EPI)AfAm Est GFR (CKD-EPI)NonAf Random Glucose Lactic Acid 2.5 H* Calcium Total Bilirubin Direct Bilirubin AST ALT Alkaline Phosphatase Ammonia LD Total Creatine Kinase Troponin I 0.09 H Total Protein Albumin Lipase Vitamin B12 Serum Folate Urine Color Dk yellow Urine Appearance Clear Urine pH 5.0 Ur Specific [place] 1.034 Urine Protein 1+ H Urine Glucose (UA) 3+ H Urine Ketones Trace H Urine Blood 1+ H Urine Nitrite Positive H Urine Bilirubin 2+ H Urine Urobilinogen 2.0 Ur Leukocyte Esterase Trace Urine WBC (Auto) 3 Urine RBC (Auto) 6 Urine Casts (Auto) 7 U Epithel Cells (Auto) 2.3 Urine Bacteria (Auto) 25.5 Alcohol, Quantitative Blood Type Antibody Screen 10/24/19 10/24/19 10/24/19 20:45 20:45 20:45 WBC Corrected WBC (auto) RBC Hgb Hct MCV MCH MCHC RDW Plt Count MPV Absolute Neuts (auto) Neutrophils % Neutrophils % (Manual) Band Neutrophils % Lymphocytes % Lymphocytes % (Manual) Monocytes % Monocytes % (Manual) Eosinophils % Basophils % Nucleated RBC % Hypochromia Platelet Estimate Platelet Comment Anisocytosis Microcytosis Target Cells Ovalocytes PT with INR INR PTT (Actin FS) VBG pH POC VBG pCO2 POC VBG pO2 VBG HCO3 VBG O2 Sat (Johan) VBG Base Excess Sodium Potassium Chloride Carbon Dioxide Anion Gap BUN Creatinine Est GFR (CKD-EPI)AfAm Est GFR (CKD-EPI)NonAf Random Glucose Lactic Acid Calcium Total Bilirubin Direct Bilirubin 7.7 H AST ALT Alkaline Phosphatase Ammonia LD Total 203 Creatine Kinase Troponin I Total Protein Albumin Lipase Vitamin B12 988 H Serum Folate 18 H Urine Color Urine Appearance Urine pH Ur Specific [place] Urine Protein Urine Glucose (UA) Urine Ketones Urine Blood Urine Nitrite Urine Bilirubin Urine Urobilinogen Ur Leukocyte Esterase Urine WBC (Auto) Urine RBC (Auto) Urine Casts (Auto) U Epithel Cells (Auto) Urine Bacteria (Auto) Alcohol, Quantitative Blood Type Antibody Screen 10/24/19 21:45 WBC Corrected WBC (auto) RBC Hgb Hct MCV MCH MCHC RDW Plt Count MPV Absolute Neuts (auto) Neutrophils % Neutrophils % (Manual) Band Neutrophils % Lymphocytes % Lymphocytes % (Manual) Monocytes % Monocytes % (Manual) Eosinophils % Basophils % Nucleated RBC % Hypochromia Platelet Estimate Platelet Comment Anisocytosis Microcytosis Target Cells Ovalocytes PT with INR INR PTT (Actin FS) VBG pH POC VBG pCO2 POC VBG pO2 VBG HCO3 VBG O2 Sat (Johan) VBG Base Excess Sodium Potassium Chloride Carbon Dioxide Anion Gap BUN Creatinine Est GFR (CKD-EPI)AfAm Est GFR (CKD-EPI)NonAf Random Glucose Lactic Acid Calcium Total Bilirubin Direct Bilirubin AST ALT Alkaline Phosphatase Ammonia LD Total Creatine Kinase Troponin I Total Protein Albumin Lipase Vitamin B12 Serum Folate Urine Color Urine Appearance Urine pH Ur Specific [place] Urine Protein Urine Glucose (UA) Urine Ketones Urine Blood Urine Nitrite Urine Bilirubin Urine Urobilinogen Ur Leukocyte Esterase Urine WBC (Auto) Urine RBC (Auto) Urine Casts (Auto) U Epithel Cells (Auto) Urine Bacteria (Auto) Alcohol, Quantitative Blood Type A POSITIVE Antibody Screen Negative ASSESSMENT/PLAN: 78 year old Yoruba speaking male with PMHx of thalassemia minor, 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 Cholelithiasis with Cholecystitis vs cholangitis Pt had fever of 101 at home associated with elevated LFTS and RUQ pain and poor diet. currently afebrile Pt has prior hx of choledocolethiasis and cholelithiasis s/p ERCP & stent placement in 2010 but no cholecystectomy due to high risk of complication at the time per family. US and CT findings discussed above NPO for now. Pre-op labs ordered in case of intervention tomorrow. ( thrombocytopenia currently receiving 2 units of platelets in case) Surgery consult in the AM will give rocephin 2gm daily with flagyl 500 q8H for empiric coverage GI- Dr Corbett consulted No active nausea/vomiting- consider zofran if resume and persist. Thrombocytopenia most likely due to active liver disease/cirrhosis and alcoholism current platelets at 16k without signs of active bleeding. Dr Valle Heme/Onc consulted with recommendation of giving 2 units of platelets in case of surgical intervention tomorrow. monitor with CBC New onset Afib Admit to telemetry EKG with new AFIB with RVR, L axis deviation, HR 113, QTc 403. back to NSR no AC due to thrombocytopenia monitor on telemetry Cardio Dr Lopez consulted Echo ordered will continue home dose of metroprolol 25 mg daily Elevated troponin most likely due to demand as pt denies any chest pain. No cardiac history per pt and family initially 0.12 then trended down to 0.09 3rd trop pending for 6 am to r.o ACS Anemia with low MCV most likely from Pt thalassemia minor however can't r/o YAJAIRA basic anemia work up including serial stool guaiacs, reticulocyte count and iron studies. Pt had recent colonoscopy as per family with no acute concern Hypoalbuminemia Possibly due to combined effects of malnutrition and inflammation associated with comorbid chronic conditions recent complaints of decreased appetite and increased drinking encourage intake Dietary consult Lactic Acidosis most likely due to poss infectious state and poor oral intake initially 4.5 improved to 2.5 s/p 2L of NS currently on NS @ 100cc/h pending repeat DM ISS BGM Elevated Cr - Has risk factors for JOHNATHON including hepatorenal syndrome in the setting of cirrhosis Cr at 1.3 monitor urine output avoid nephrotoxic agents Alcohol abuse ativan PRN No active withdrawal thiamine and folic acid monitor electrolytes DVT ppx ambulation no AC or SCDs Advance directives - Full code Visit type - Emergency Visit Emergency Visit: Yes ED Registration Date: 10/24/19 Care time: The patient presented to the Emergency Department on the above date and was hospitalized for further evaluation of their emergent condition. - New Patient This patient is new to me today: Yes Date on this admission: 10/25/19 - Critical Care Critical Care patient: No ATTENDING PHYSICIAN STATEMENT I saw and evaluated the patient. I reviewed the resident's note and discussed the case with the resident. I agree with the resident's findings and plan as documented. SUBJECTIVE: OBJECTIVE: ASSESSMENT AND PLAN:
[2019-10-25] MEDS ORDERED: MORPHINE SULFATE 2 MG/ML VIAL IVPUSH PRN (01:03)
[2019-10-25] MEDS ORDERED: SODIUM CHLORIDE 1,000 ML IV SCH (01:15)
[2019-10-25] MEDS ORDERED: CEFTRIAXONE 1 GM in DEXTROSE 5%-WATER - 50 ML IVPB ONE ×2 (02:00→03:45)
[2019-10-25] MEDS ORDERED: LORazepam 1 MG TABLET PO PRN (02:52)
[2019-10-25] MEDS ORDERED: METOPROLOL TARTRATE 5 MG/5 ML VIAL IVPUSH ONE (03:10)
[2019-10-25 04:31] VITALS: BMI 23.3
[2019-10-25] MEDS ORDERED: cefTRIAXone SODIUM 1 GM VIAL ONE (04:39)
[2019-10-25] MEDS ORDERED: DEXTROSE 5%-WATER - 50 ML IVPB ONE (04:39)
[2019-10-25 06:40] LABS: BASO % 0.4 % (0-2.0); EOS % 0.5 % (0-4.5); HEMATOCRIT 33.7 % (35.4-49); LYMPH % 2.9 % (8-40); MCHC 32.5 g/dl (32.0-35.9); MEAN CELL VOLUME 67.4 fl (80-96); MEAN PLT VOLUME 8.7 fl (7.5-11.1); MONO % 10.9 % (3.8-10.2); NEUT % 85.3 % (42.8-82.8); RBC 4.99 M/mm3 (4.00-5.60); RDW 16.5 % (11.9-15.9)
[2019-10-25] MEDS: INSULIN SLIDING SCALE (NOVOLOG) 1 VIAL SQ SCH ×4 (06:48→22:47)
[2019-10-25 07:13] LABS: ALBUMIN 2.4 g/dl (3.4-5.0); BILIRUBIN,TOTAL 12.6 mg/dL (0.2-1); BLOOD UREA NITROGEN 23.6 mg/dL (7-18); CALCIUM 8.1 mg/dL (8.5-10.1); CREATININE 0.9 mg/dL (0.55-1.3); PHOSPHOROUS 1.5 mg/dL (2.5-4.9); POTASSIUM 3.9 mmol/L (3.5-5.1)
[2019-10-25] MEDS ORDERED: INSULIN (NOVOLOG) ASPART 100 UNITS/ML 10ML VIAL ONE (07:52)
[2019-10-25 07:59] LABS: PLATELET COUNT 33 K/MM3 (134-434)
[2019-10-25] MEDS ORDERED: NAPH,MB-DB/K PH,MBDB POWDER PACKET PO ONE (09:00)
[2019-10-25] MEDS ORDERED: metoPROLOL SUCCINATE 25 MG TAB.SR.24H (FP) PO SCH (10:00)
[2019-10-25] MEDS: FOLIC ACID 1 MG TABLET (FP) PO SCH (10:03)
[2019-10-25] MEDS: THIAMINE HCL 100 MG TABLET (FP) PO SCH (10:03)
--- NOTE | 2019-10-25 10:22 | CONSULT ---
Consultation: REQUESTING PROVIDER: Primary team CONSULT REQUEST: We have been asked to medically evaluate this patient for ( thrmombocytopenia ). 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 Per , patient has been having suggestive fever for 2 days with a measured temperature of 101F this morning . The RUQ pain is not exacerbated or relieved with food but associated with 2 episodes of nausea and NBNB vomiting. states patient has been drinking more than usual in the past few months, but does not know the exact amount as patient tends to hide his drinking. Per , patient has had bilateral yellow conjunctiva for the past 10 days, yellowing of the skin and dark urine for 3 days. Patient normally has poor appetite, but does eat a large breakfast which comprises of fries and eggs.. He denies any diarrhea, constipation, or bowel changes, chest pain, shortness of breath, or other problems at this time. He last had a GI appointment in June with stable findings. Also took tylenol at home to alleviate pain. no history of active bleeding , no frequent blood transfsuion , denies any blood in the stool or urine. REVIEW OF SYSTEMS: CONSTITUTIONAL: Absent: fever, chills, diaphoresis, generalized weakness, malaise, loss of appetite, weight change HEENT: Absent: rhinorrhea, nasal congestion, throat pain, throat swelling, difficulty swallowing, mouth swelling, ear pain, eye pain, visual changes CARDIOVASCULAR: Absent: chest pain, syncope, palpitations, irregular heart rate, lightheadedness , peripheral edema RESPIRATORY: Absent: cough, shortness of breath, dyspnea with exertion, orthopnea, wheezing, stridor, hemoptysis GASTROINTESTINAL: Absent: abdominal pain, abdominal distension, nausea, vomiting, diarrhea, constipation, melena, hematochezia GENITOURINARY: Absent: dysuria, frequency, urgency, hesitancy, hematuria, flank pain, genital pain MUSCULOSKELETAL: Absent: myalgia, arthralgia, joint swelling, back pain, neck pain SKIN: Absent: rash, itching, pallor HEMATOLOGIC/IMMUNOLOGIC: Absent: easy bleeding, easy bruising, lymphadenopathy, frequent infections ENDOCRINE: Absent: unexplained weight gain, unexplained weight loss, heat intolerance, cold intolerance NEUROLOGIC: Absent: headache, focal weakness or paresthesias, dizziness, unsteady gait, seizure, mental status changes, bladder or bowel incontinence PSYCHIATRIC: Absent: anxiety, depression, suicidal or homicidal ideation, hallucinations. PHYSICAL EXAMINATION Vital Signs - 24 hr 10/24/19 10/24/19 10/24/19 15:22 20:27 22:15 Temperature 98.5 F Pulse Rate 79 Pulse Rate [ 120 H 128 H Apical] Respiratory 16 20 20 Rate Blood Pressure 119/73 Blood Pressure 111/73 108/77 [Left Arm] O2 Sat by Pulse 98 94 L 96 Oximetry (%) 10/24/19 10/25/19 10/25/19 23:56 00:18 02:00 Temperature 98.2 F 99 F Pulse Rate 124 H Pulse Rate [ 118 H Apical] Respiratory 20 Rate Blood Pressure 123/68 Blood Pressure 97/67 [Left Arm] O2 Sat by Pulse Oximetry (%) 10/25/19 10/25/19 10/25/19 03:29 04:19 04:32 Temperature 99 F 98.6 F Pulse Rate 130 H 119 H 80 Pulse Rate [ Apical] Respiratory 20 20 Rate Blood Pressure 130/84 130/86 111/63 Blood Pressure [Left Arm] O2 Sat by Pulse Oximetry (%) 10/25/19 06:00 Temperature 98.8 F Pulse Rate 86 Pulse Rate [ Apical] Respiratory 20 Rate Blood Pressure 116/62 Blood Pressure [Left Arm] O2 Sat by Pulse Oximetry (%) GENERAL: Awake, alert, and fully oriented, generalized jaundice , icteric sclera EYES: Pupils equal, round and reactive to light, extraocular movements intact, sclera icteric, EARS, NOSE, THROAT:dry mucous membranes. NECK: supple LUNGS: bibasilar fine crackles HEART: IRR IRR , #/^ systolic murmur LUSB ABDOMEN: Soft, RUQ tenderness , not distended, normoactive bowel sounds, no guarding,+ [place] LOWER EXTREMITIES: 2+ pulses, warm, well-perfused. No calf tenderness. No peripheral edema. NEUROLOGICAL: Cranial nerves II-XII intact. Normal speech. PSYCHIATRIC: Cooperative. Good eye contact. SKIN: Warm, dry, normal turgor,generalized jaundice , Laboratory Results - last 24 hr 10/24/19 10/24/19 10/24/19 06:09 16:10 16:30 WBC Cancelled Corrected WBC (auto) Cancelled RBC Cancelled Hgb Cancelled Hct Cancelled MCV Cancelled MCH Cancelled MCHC Cancelled RDW Cancelled Plt Count Cancelled MPV Cancelled Absolute Neuts (auto) Cancelled Neutrophils % Cancelled Neutrophils % (Manual) Band Neutrophils % Lymphocytes % Cancelled Lymphocytes % (Manual) Monocytes % Cancelled Monocytes % (Manual) Eosinophils % Cancelled Basophils % Cancelled Nucleated RBC % Cancelled Hypochromia Platelet Estimate Cancelled Platelet Comment Cancelled Anisocytosis Microcytosis Target Cells Ovalocytes PT with INR INR PTT (Actin FS) VBG pH POC VBG pCO2 POC VBG pO2 VBG HCO3 VBG O2 Sat (Johan) VBG Base Excess Sodium Potassium Chloride Carbon Dioxide Anion Gap BUN Creatinine Est GFR (CKD-EPI)AfAm Est GFR (CKD-EPI)NonAf POC Glucometer Random Glucose Hemoglobin A1c % Lactic Acid Calcium Phosphorus Magnesium Iron TIBC Iron Saturation Unsaturated IBC Ferritin Total Bilirubin Direct Bilirubin AST ALT Alkaline Phosphatase Ammonia < 10 L LD Total Creatine Kinase Troponin I Total Protein Albumin Lipase Vitamin B12 Serum Folate Urine Color Urine Appearance Urine pH Ur Specific [place] Urine Protein Urine Glucose (UA) Urine Ketones Urine Blood Urine Nitrite Urine Bilirubin Urine Urobilinogen Ur Leukocyte Esterase Urine WBC (Auto) Urine RBC (Auto) Urine Casts (Auto) U Epithel Cells (Auto) Urine Bacteria (Auto) Alcohol, Quantitative Blood Type A POSITIVE Antibody Screen 10/24/19 10/24/19 10/24/19 16:35 16:40 16:40 WBC Corrected WBC (auto) RBC Hgb Hct MCV MCH MCHC RDW Plt Count MPV Absolute Neuts (auto) Neutrophils % Neutrophils % (Manual) Band Neutrophils % Lymphocytes % Lymphocytes % (Manual) Monocytes % Monocytes % (Manual) Eosinophils % Basophils % Nucleated RBC % Hypochromia Platelet Estimate Platelet Comment Anisocytosis Microcytosis Target Cells Ovalocytes PT with INR INR PTT (Actin FS) VBG pH POC VBG pCO2 POC VBG pO2 VBG HCO3 VBG O2 Sat (Johan) VBG Base Excess Sodium 137 Potassium 3.9 Chloride 103 Carbon Dioxide 24 Anion Gap 10 BUN 37.3 H Creatinine 1.3 Est GFR (CKD-EPI)AfAm 59.73 Est GFR (CKD-EPI)NonAf 51.53 POC Glucometer Random Glucose 253 H Hemoglobin A1c % Lactic Acid 4.5 H* Calcium 8.9 Phosphorus Magnesium Iron TIBC Iron Saturation Unsaturated IBC Ferritin Total Bilirubin 10.7 H Direct Bilirubin AST 271 H ALT 267 H Alkaline Phosphatase 79 Ammonia LD Total Creatine Kinase 115 Troponin I 0.12 H Total Protein 6.1 L Albumin 2.9 L Lipase 49 L Vitamin B12 Serum Folate Urine Color Urine Appearance Urine pH Ur Specific [place] Urine Protein Urine Glucose (UA) Urine Ketones Urine Blood Urine Nitrite Urine Bilirubin Urine Urobilinogen Ur Leukocyte Esterase Urine WBC (Auto) Urine RBC (Auto) Urine Casts (Auto) U Epithel Cells (Auto) Urine Bacteria (Auto) Alcohol, Quantitative < 3 Blood Type Antibody Screen 10/24/19 10/24/19 10/24/19 16:40 16:40 16:40 WBC Corrected WBC (auto) RBC Hgb Hct MCV MCH MCHC RDW Plt Count MPV Absolute Neuts (auto) Neutrophils % Neutrophils % (Manual) Band Neutrophils % Lymphocytes % Lymphocytes % (Manual) Monocytes % Monocytes % (Manual) Eosinophils % Basophils % Nucleated RBC % Hypochromia Platelet Estimate Platelet Comment Anisocytosis Microcytosis Target Cells Ovalocytes PT with INR 20.20 H INR 1.70 H PTT (Actin FS) 36.1 VBG pH 7.41 POC VBG pCO2 39.1 POC VBG pO2 < 49 H VBG HCO3 24.5 VBG O2 Sat (Johan) 37.6 L VBG Base Excess 0.5 Sodium Potassium Chloride Carbon Dioxide Anion Gap BUN Creatinine Est GFR (CKD-EPI)AfAm Est GFR (CKD-EPI)NonAf POC Glucometer Random Glucose Hemoglobin A1c % Lactic Acid Calcium Phosphorus Magnesium Iron TIBC Iron Saturation Unsaturated IBC Ferritin Total Bilirubin Direct Bilirubin AST ALT Alkaline Phosphatase Ammonia LD Total Creatine Kinase Troponin I Total Protein Albumin Lipase Vitamin B12 Serum Folate Urine Color Urine Appearance Urine pH Ur Specific [place] Urine Protein Urine Glucose (UA) Urine Ketones Urine Blood Urine Nitrite Urine Bilirubin Urine Urobilinogen Ur Leukocyte Esterase Urine WBC (Auto) Urine RBC (Auto) Urine Casts (Auto) U Epithel Cells (Auto) Urine Bacteria (Auto) Alcohol, Quantitative Blood Type A POSITIVE Antibody Screen Negative 10/24/19 10/24/19 10/24/19 18:20 18:20 20:45 WBC 4.7 Corrected WBC (auto) RBC 4.75 Hgb 10.5 L Hct 32.4 L MCV 68.2 L MCH 22.1 L MCHC 32.4 RDW 16.4 H Plt Count 16 L* MPV 10.6 Absolute Neuts (auto) 3.8 Neutrophils % 79.6 Neutrophils % (Manual) 80.0 Band Neutrophils % 2.0 Lymphocytes % 8.9 Lymphocytes % (Manual) 8.0 Monocytes % 10.5 H Monocytes % (Manual) 10 Eosinophils % 0.8 Basophils % 0.2 Nucleated RBC % 0 Hypochromia 2+ Platelet Estimate Decreased Platelet Comment Anisocytosis 1+ Microcytosis 1+ Target Cells 1+ Ovalocytes 1+ PT with INR INR PTT (Actin FS) VBG pH POC VBG pCO2 POC VBG pO2 VBG HCO3 VBG O2 Sat (Johan) VBG Base Excess Sodium Potassium Chloride Carbon Dioxide Anion Gap BUN Creatinine Est GFR (CKD-EPI)AfAm Est GFR (CKD-EPI)NonAf POC Glucometer Random Glucose Hemoglobin A1c % Lactic Acid Calcium Phosphorus Magnesium Iron TIBC Iron Saturation Unsaturated IBC Ferritin Total Bilirubin Direct Bilirubin AST ALT Alkaline Phosphatase Ammonia LD Total Creatine Kinase Troponin I 0.09 H Total Protein Albumin Lipase Vitamin B12 Serum Folate Urine Color Dk yellow Urine Appearance Clear Urine pH 5.0 Ur Specific [place] 1.034 Urine Protein 1+ H Urine Glucose (UA) 3+ H Urine Ketones Trace H Urine Blood 1+ H Urine Nitrite Positive H Urine Bilirubin 2+ H Urine Urobilinogen 2.0 Ur Leukocyte Esterase Trace Urine WBC (Auto) 3 Urine RBC (Auto) 6 Urine Casts (Auto) 7 U Epithel Cells (Auto) 2.3 Urine Bacteria (Auto) 25.5 Alcohol, Quantitative Blood Type Antibody Screen 10/24/19 10/24/19 10/24/19 20:45 20:45 20:45 WBC Corrected WBC (auto) RBC Hgb Hct MCV MCH MCHC RDW Plt Count MPV Absolute Neuts (auto) Neutrophils % Neutrophils % (Manual) Band Neutrophils % Lymphocytes % Lymphocytes % (Manual) Monocytes % Monocytes % (Manual) Eosinophils % Basophils % Nucleated RBC % Hypochromia Platelet Estimate Platelet Comment Anisocytosis Microcytosis Target Cells Ovalocytes PT with INR INR PTT (Actin FS) VBG pH POC VBG pCO2 POC VBG pO2 VBG HCO3 VBG O2 Sat (Johan) VBG Base Excess Sodium Potassium Chloride Carbon Dioxide Anion Gap BUN Creatinine Est GFR (CKD-EPI)AfAm Est GFR (CKD-EPI)NonAf POC Glucometer Random Glucose Hemoglobin A1c % Lactic Acid 2.5 H* Calcium Phosphorus Magnesium Iron TIBC Iron Saturation Unsaturated IBC Ferritin Total Bilirubin Direct Bilirubin 7.7 H AST ALT Alkaline Phosphatase Ammonia LD Total 203 Creatine Kinase Troponin I Total Protein Albumin Lipase Vitamin B12 Serum Folate 18 H Urine Color Urine Appearance Urine pH Ur Specific [place] Urine Protein Urine Glucose (UA) Urine Ketones Urine Blood Urine Nitrite Urine Bilirubin Urine Urobilinogen Ur Leukocyte Esterase Urine WBC (Auto) Urine RBC (Auto) Urine Casts (Auto) U Epithel Cells (Auto) Urine Bacteria (Auto) Alcohol, Quantitative Blood Type Antibody Screen 10/24/19 10/24/19 10/25/19 20:45 21:45 06:09 WBC 8.0 Corrected WBC (auto) RBC 4.99 Hgb 11.0 L Hct 33.7 L MCV 67.4 L MCH 22.0 L MCHC 32.5 RDW 16.5 H Plt Count 33 L* D MPV 8.7 D Absolute Neuts (auto) 6.8 Neutrophils % 85.3 H Neutrophils % (Manual) Band Neutrophils % Lymphocytes % 2.9 L D Lymphocytes % (Manual) Monocytes % 10.9 H Monocytes % (Manual) Eosinophils % 0.5 Basophils % 0.4 Nucleated RBC % 0 Hypochromia Platelet Estimate Platelet Comment Anisocytosis Microcytosis Target Cells Ovalocytes PT with INR INR PTT (Actin FS) VBG pH POC VBG pCO2 POC VBG pO2 VBG HCO3 VBG O2 Sat (Johan) VBG Base Excess Sodium Potassium Chloride Carbon Dioxide Anion Gap BUN Creatinine Est GFR (CKD-EPI)AfAm Est GFR (CKD-EPI)NonAf POC Glucometer Random Glucose Hemoglobin A1c % Lactic Acid Calcium Phosphorus Magnesium Iron TIBC Iron Saturation Unsaturated IBC Ferritin Total Bilirubin Direct Bilirubin AST ALT Alkaline Phosphatase Ammonia LD Total Creatine Kinase Troponin I Total Protein Albumin Lipase Vitamin B12 988 H Serum Folate Urine Color Urine Appearance Urine pH Ur Specific [place] Urine Protein Urine Glucose (UA) Urine Ketones Urine Blood Urine Nitrite Urine Bilirubin Urine Urobilinogen Ur Leukocyte Esterase Urine WBC (Auto) Urine RBC (Auto) Urine Casts (Auto) U Epithel Cells (Auto) Urine Bacteria (Auto) Alcohol, Quantitative Blood Type A POSITIVE Antibody Screen Negative 10/25/19 10/25/19 10/25/19 06:09 06:09 06:09 WBC Corrected WBC (auto) RBC Hgb Hct MCV MCH MCHC RDW Plt Count MPV Absolute Neuts (auto) Neutrophils % Neutrophils % (Manual) Band Neutrophils % Lymphocytes % Lymphocytes % (Manual) Monocytes % Monocytes % (Manual) Eosinophils % Basophils % Nucleated RBC % Hypochromia Platelet Estimate Platelet Comment Anisocytosis Microcytosis Target Cells Ovalocytes PT with INR INR PTT (Actin FS) VBG pH POC VBG pCO2 POC VBG pO2 VBG HCO3 VBG O2 Sat (Johan) VBG Base Excess Sodium 142 Potassium 3.9 Chloride 109 H Carbon Dioxide 24 Anion Gap 9 BUN 23.6 H Creatinine 0.9 Est GFR (CKD-EPI)AfAm 93.16 Est GFR (CKD-EPI)NonAf 80.38 POC Glucometer Random Glucose 167 H Hemoglobin A1c % 7.3 H Lactic Acid Calcium 8.1 L Phosphorus 1.5 L Magnesium 2.0 Iron 57 TIBC 162 L Iron Saturation 35 Unsaturated IBC 105 L Ferritin 1115.6 H Total Bilirubin 12.6 H Direct Bilirubin AST 256 H ALT 272 H Alkaline Phosphatase 68 Ammonia LD Total Creatine Kinase Troponin I 0.04 Total Protein 5.0 L Albumin 2.4 L Lipase Vitamin B12 Serum Folate Urine Color Urine Appearance Urine pH Ur Specific [place] Urine Protein Urine Glucose (UA) Urine Ketones Urine Blood Urine Nitrite Urine Bilirubin Urine Urobilinogen Ur Leukocyte Esterase Urine WBC (Auto) Urine RBC (Auto) Urine Casts (Auto) U Epithel Cells (Auto) Urine Bacteria (Auto) Alcohol, Quantitative Blood Type Antibody Screen 10/25/19 10/25/19 06:09 06:35 WBC Corrected WBC (auto) RBC Hgb Hct MCV MCH MCHC RDW Plt Count MPV Absolute Neuts (auto) Neutrophils % Neutrophils % (Manual) Band Neutrophils % Lymphocytes % Lymphocytes % (Manual) Monocytes % Monocytes % (Manual) Eosinophils % Basophils % Nucleated RBC % Hypochromia Platelet Estimate Platelet Comment Anisocytosis Microcytosis Target Cells Ovalocytes PT with INR INR PTT (Actin FS) VBG pH POC VBG pCO2 POC VBG pO2 VBG HCO3 VBG O2 Sat (Johan) VBG Base Excess Sodium Potassium Chloride Carbon Dioxide Anion Gap BUN Creatinine Est GFR (CKD-EPI)AfAm Est GFR (CKD-EPI)NonAf POC Glucometer 163 Random Glucose Hemoglobin A1c % Lactic Acid 2.3 H* Calcium Phosphorus Magnesium Iron TIBC Iron Saturation Unsaturated IBC Ferritin Total Bilirubin Direct Bilirubin AST ALT Alkaline Phosphatase Ammonia LD Total Creatine Kinase Troponin I Total Protein Albumin Lipase Vitamin B12 Serum Folate Urine Color Urine Appearance Urine pH Ur Specific [place] Urine Protein Urine Glucose (UA) Urine Ketones Urine Blood Urine Nitrite Urine Bilirubin Urine Urobilinogen Ur Leukocyte Esterase Urine WBC (Auto) Urine RBC (Auto) Urine Casts (Auto) U Epithel Cells (Auto) Urine Bacteria (Auto) Alcohol, Quantitative Blood Type Antibody Screen Active Medications Generic Name Dose Route Start Last Admin Trade Name Freq PRN Reason Stop Dose Admin Folic Acid 1 mg 10/25/19 10:00 10/25/19 10:03 Folic Acid - PO 1 mg DAILY JAYDON Administration Sodium Chloride 1,000 mls @ 100 mls/hr 10/25/19 01:15 10/25/19 01:59 Normal Saline - IV 100 mls/hr ASDIR JAYDON Administration Metronidazole 500 mg in 100 mls @ 100 mls/hr 10/25/19 02:00 10/25/19 10:02 Flagyl 500mg Premixed Ivpb - IVPB 100 mls/hr Q8H-IV JAYDON Administration Ceftriaxone Sodium 2 gm/ 50 mls @ 50 mls/hr 10/25/19 22:00 Dextrose IVPB DAILY@2200 JAYDON Insulin Aspart 1 vial 10/25/19 07:00 10/25/19 06:48 Novolog Vial Sliding Scale - SQ 2 units ACHS JAYDON Administration Protocol Lorazepam 2 mg 10/25/19 02:52 Ativan - PO DAILY PRN ANXIETY Metoprolol Succinate 25 mg 10/25/19 10:00 10/25/19 10:03 Toprol Xl - PO 25 mg DAILY JAYDON Administration Morphine Sulfate 2 mg 10/25/19 01:03 Morphine Sulfate IVPUSH Q4H PRN PAIN LEVEL 6-10 Thiamine HCl 100 mg 10/25/19 10:00 10/25/19 10:03 Vitamin B1 - PO 100 mg DAILY JAYDON Administration CBC, BMP 10/25/19 06:09 10/25/19 06:09 ASSESSMENT/PLAN: primary note pending discussion with Dr Corrales 78 year old [place] speaking male with PMHx of thalassemia minor, 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 we were onsulted for thrombocytopenia # thrombocytopenia likley 2/2 alcohol abuse and cirrhosis * S/P 2 units of platlets * PT, PT, INR , BT , fibrinogen , type and screen * imaging with acute cholecystitis, cirrhosis , portal vein thrombosis , esophageal varices and mild ascities * monitor for any signs of bleeding * GI consult * cont abx ceftriaxon, flagyl * plt should be above 50 K for any surgical intervention * Vit K 5 mg SQ daily for 3 days * Avoid NSAIDS * FOBT * reticulocytes, haptoglobin pending # portal vein thrombosis 2/2 cirrhosis not a candidate for AC due to low plt count /esophageal varices , high risk for bleeding # Anemia microcytic , normochroni 2/2 thalasemia minor * iron studies reviewed ferritin 1156, Fe 57, TIBC 162 * 12 and folic acid elevated # Lactic acidosis cont iv fluids , trending down # UTI cont abx # Acute cholecystits consult surgery #trace ascities # Cirrhosis trend lFts , consult GI , US reviewed # Esophaeal varices # AfiB cardiology consulted switch BB to nadolol # troponinemia likley demand ischemia # DM # JOHNATHON # alcohol abuse on Ativan PRN for withdrawal , 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 Thank you for this consultative opportunity. Visit type - Emergency Visit Emergency Visit: Yes ED Registration Date: 10/24/19 Care time: The patient presented to the Emergency Department on the above date and was hospitalized for further evaluation of their emergent condition. - New Patient This patient is new to me today: Yes Date on this admission: 10/26/19 - Critical Care Critical Care patient: No ATTENDING PHYSICIAN STATEMENT I saw and evaluated the patient. I reviewed the resident's note and discussed the case with the resident. I agree with the resident's findings and plan as documented. SUBJECTIVE: OBJECTIVE: ASSESSMENT AND PLAN:
--- NOTE | 2019-10-25 10:46 | CON.CARD ---
Consult Consult Specialty:: Cardiology Referred by:: Hospitalist Medicine Reason for Consultation:: Pre-op CV evaluation, newly diagnosed afib - History of Present Illness Chief Complaint: Abd pain, nausea, emesis, fevers and chills History of Present Illness: Patient is an 78 year old man a PMH of Gallstones, Thalassemia minor, Alcohol abuse, Alcoholic liver disease, Cirrhosis and NIDDM who presents to the ER with epigastric pain, fever, jaundice and chills for the last 3 days. As per patient , he stopped drinking but started again about a year ago and hides it from his family. Patient states he now drinks frequently. Patient states he has not seen his GI doctor in the [place] for the last 5 years. Patients family member reports a fever this morning of 101 F with associated nausea. Patient also adds he had one episode of NBNB emesis yesterday and loose yellow stool. No recent travel or sick contacts. Denies tobacco or illicit drug use. Found to be in rapid afib asymptomatic and denies chest pain, dyspnea, palpitations, near or true syncope, orthopnea, PND or LE edema. - History Source History Provided By: Patient Limitations to Obtaining History: No Limitations - Alcohol/Substance Use Hx Alcohol Use: No - Smoking History Smoking history: Never smoked Have you smoked in the past 12 months: No Home Medications - Allergies Allergies/Adverse Reactions: Allergies Allergy/AdvReac Type Severity Reaction Status Date / Time No Known Allergies Allergy Verified 10/24/19 16:18 - Home Medications Home Medications: Ambulatory Orders Folic Acid 1 mg PO DAILY 10/24/19 Furosemide 20 mg PO DAILY 10/24/19 Glipizide 10 mg PO BID 10/24/19 Metoprolol Succinate [Toprol Xl] 25 mg PO DAILY 10/24/19 Review of Systems - Review of Systems Gastrointestinal: reports: Abdominal Pain, Nausea, Vomiting Vital Signs: Vital Signs Temperature 98.8 F 10/25/19 06:00 Pulse Rate 86 10/25/19 06:00 Respiratory Rate 20 10/25/19 06:00 Blood Pressure 116/62 10/25/19 06:00 O2 Sat by Pulse Oximetry (%) 96 10/24/19 22:15 Constitutional: Yes: No Distress, Calm Eyes: Yes: Sclera Icterus Neck: Yes: Supple Respiratory: Yes: Regular, CTA Bilaterally Gastrointestinal: Yes: Normal Bowel Sounds, Soft Cardiovascular: Yes: Tachycardia, Pulse Irregular JVD: No Carotid Bruit: No Heart Sounds: Yes: S1, S2 Murmur: Yes: Systolic Murmur, Grade 1 Edema: No - Other Data Labs, Other Data: CBC, BMP 10/25/19 06:09 10/25/19 06:09 INR, PTT INR 1.70 (0.83-1.09) H 10/24/19 16:40 Troponin, BNP 10/24/19 10/24/19 10/25/19 16:40 20:45 06:09 Troponin I 0.12 H 0.09 H 0.04 Troponin, BNP 10/24/19 10/24/19 10/25/19 16:40 20:45 06:09 Troponin I 0.12 H 0.09 H 0.04 Afib @ 113, LAD Imaging - Results Chest X-ray: Report Reviewed (right base ATX) Problem List - Problems (1) Demand ischemia Code(s): I24.8 - OTHER FORMS OF ACUTE ISCHEMIC HEART DISEASE (2) Cirrhosis Code(s): K74.60 - UNSPECIFIED CIRRHOSIS OF LIVER Qualifiers: Hepatic cirrhosis type: alcoholic cirrhosis (3) Portal vein thrombosis Code(s): I81 - PORTAL VEIN THROMBOSIS (4) Coagulopathy Code(s): D68.9 - COAGULATION DEFECT, UNSPECIFIED (5) 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 Code(s): D69.59 - OTHER SECONDARY THROMBOCYTOPENIA; F10.20 - ALCOHOL DEPENDENCE , UNCOMPLICATED (6) Cholelithiasis Code(s): K80.20 - CALCULUS OF GALLBLADDER W/O CHOLECYSTITIS W/O OBSTRUCTION Qualifiers: Cholelithiasis location: gallbladder Cholecystitis presence: with cholecystitis Cholecystitis acuity: unspecified acuity Biliary obstruction: without biliary obstruction Qualified Code(s): K80.10 - Calculus of gallbladder with chronic cholecystitis without obstruction (7) Jaundice Code(s): R17 - UNSPECIFIED JAUNDICE (8) New onset a-fib Code(s): I48.91 - UNSPECIFIED ATRIAL FIBRILLATION Assessment/Plan 10/24/[address]: Cirrhosis, splenomegaly, thrombosis of main portal vein and extensive varices, trace ascites, acute cholecystitis 10/24/2019 Abd US: Multiple cholelithiasis, no biliary duct dilatation, no AAA, IVC patent 1. Newly diagnosed rapid atrial fibrillation 2. Cholelithiasis with Possible Acute Cholecystitis 3. 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 Thrombocytopenia 2/2 #3 5. Pre-op CV evaluation 6. JOHNATHON resolved 7. ETOH dependence 8. Demand ischemia 9. Microcytic anemia h/o thalassemia minor 10. Coagulopathy due to #3 11. Type 2 DM not at goal control P:1. F/u HIDA scan 2. Empiric abx for biliary source 3. Change Toprol XL to Nadolol 20 qd with uptitration as tolerated for rate- control and decrease portal pressures 4. F/u echocardiogram, trops downtrending, trend LFTs 5. No a/c due to severe thrombocytopenia and coagulopathy 6. Defer surgery pending adequate rate-control if possible, correct coagulopathy 7. Lasix, Aldactone, rifaxamin and lactulose with monitor diuretic response, renal fxn and electrolytes 8. 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 Thank you for consultative opportunity
[2019-10-25 11:23] LABS: ANISOCYTOSIS 2+; MACROCYTOSIS 0; PLATELET ESTIMATE DECREASED; TARGET CELLS 2+; TEAR DROP CELLS 1+
[2019-10-25 12:37] LABS: BASO % 0.2 % (0-2.0); EOS % 0.6 % (0-4.5); LYMPH % 8.1 % (8-40); MCH 21.9 pg (25.7-33.7); MCHC 32.3 g/dl (32.0-35.9); MEAN CELL VOLUME 67.9 fl (80-96); MEAN PLT VOLUME 8.6 fl (7.5-11.1); MONO % 10.5 % (3.8-10.2); NEUT % 80.6 % (42.8-82.8); PLATELET COUNT 46 K/MM3 (134-434); RBC 5.01 M/mm3 (4.00-5.60); RDW 16.6 % (11.9-15.9); WHITE BLOOD COUNT 7.5 K/mm3 (4.0-10.0)
[2019-10-25 13:06] LABS: ALBUMIN 2.5 g/dl (3.4-5.0); BILIRUBIN,TOTAL 14.4 mg/dL (0.2-1); CREATININE 0.9 mg/dL (0.55-1.3); POTASSIUM 3.8 mmol/L (3.5-5.1); TOT PROT 5.3 g/dl (6.4-8.2)
--- NOTE | 2019-10-25 13:33 | EKG ---
Test Reason : Blood Pressure : / mmHG Vent. Rate : 113 BPM Atrial Rate : 114 BPM P-R Int : 000 ms QRS Dur : 092 ms QT Int : 294 ms P-R-T Axes : 000 -38 044 degrees QTc Int : 403 ms ATRIAL FIBRILLATION WITH RAPID VENTRICULAR RESPONSE LEFT AXIS DEVIATION ABNORMAL ECG WHEN COMPARED WITH ECG OF 20-SEP-2011 17:18, ATRIAL FIBRILLATION HAS REPLACED SINUS RHYTHM Confirmed by JUSTIN VILLANUEVA MD ([id number]) on 10/25/2019 1:33:19 PM Referred By: Confirmed By:JUSTIN VILLANUEVA MD
[2019-10-25] MEDS: PHYTONADIONE 10 MG/1 ML AMP SQ SCH (14:27)
[2019-10-25 14:54] LABS: ANISOCYTOSIS 3+; MACROCYTOSIS 0; PLATELET ESTIMATE DECREASED; TARGET CELLS 2+
--- NOTE | 2019-10-25 15:07 | ECHO ---
Name: CHRIS HENDERSON Exam:Adult Echocardiogram Study Date: 10/25/2019 08:04 AM Age: 78 yrs Reason For Study: new onset a fib Height: 67 in Weight: 150 lb BSA: 1.8 m2 Procedure A complete two-dimensional transthoracic echocardiogram was performed (2D, M-mode, Doppler and color flow Doppler). Left Ventricle The left ventricle is normal in size. Left ventricular systolic function is normal. Ejection Fraction = 55- 60%. No regional wall motion abnormalities noted. Right Ventricle The right ventricle is not well visualized. Atria The left atrial size is normal. Right atrial size is normal. Mitral Valve There is moderate mitral annular calcification. There is mild to moderate mitral regurgitation. Tricuspid Valve The tricuspid valve is not well visualized. Aortic Valve There is moderate to severe aortic valve thickening. Moderate to severe valvular aortic stenosis. The calculated aortic valve area using the continuity equation is 0.8 cm2. Aortic mean pressure gradient= 24 mmHg. DI (dimensionless index) is estimated 0.20. Mild to moderate aortic regurgitation. Pulmonic Valve The pulmonic valve is not well visualized. Great Vessels The aortic root is normal size. Pericardium/Pleura There is no pericardial effusion. Interpretation Summary No regional wall motion abnormalities noted. Ejection Fraction = 55-60%. The right ventricle is not well visualized. The left atrial size is normal. Right atrial size is normal. There is moderate mitral annular calcification. There is mild to moderate mitral regurgitation. The tricuspid valve is not well visualized. There is moderate to severe aortic valve thickening. Moderate to severe valvular aortic stenosis. The calculated aortic valve area using the continuity equation is 0.8 cm2. Aortic mean pressure gradient= 24 mmHg DI (dimensionless index) is estimated 0.20 Mild to moderate aortic regurgitation. There is no pericardial effusion. Rajesh Graves MD 10/25/2019 03:07 PM
--- NOTE | 2019-10-25 15:15 | PN ---
Physical Exam: SUBJECTIVE: Patient seen and examined at bedside. He denies abdominal pain and diarrhea. He offers no complaints this morning. , Yanira, says he is appears improved; she is available at . OBJECTIVE: Vital Signs Period Temp Pulse Resp BP Sys/Negron Pulse Ox Last 24 Hr 98.1 F-99 F 79-130 16-20 97-130/62-86 94-98 GENERAL: AOx3, in no acute distress, jaundiced, [place] speaking HEAD: NCAT EYES: SERA, EOMI, scleral icterus ENT: Ears normal, nares patent, oropharynx clear without exudates. Moist mucous membranes. NECK: Normal range of motion, supple without lymphadenopathy, JVD, or masses. LUNGS: CTAB. No wheezes, and no crackles. No accessory muscle use. HEART: Regular rate. s1 s2 present with 3/5 pansystolic murmur ABDOMEN: Soft, BS present in all 4 quadrants, non-distended, no JVD, MUSCULOSKELETAL: No bony deformities or tenderness. No CVA tenderness. UPPER EXTREMITIES: 2+ pulses, warm, well-perfused. No cyanosis. No clubbing. No peripheral edema. LOWER EXTREMITIES: 2+ pulses, warm, well-perfused. No calf tenderness. No peripheral edema. NEUROLOGICAL: No focal deficits. Cranial nerves II-XII intact. Normal speech. Gait not appreciated. PSYCHIATRIC: Cooperative. Good eye contact. Appropriate mood and affect. SKIN: Warm, dry, normal turgor, no rashes or lesions noted, normal capillary refill. Laboratory Results - last 24 hr 10/24/19 10/24/19 10/24/19 06:09 16:10 16:30 WBC Cancelled Corrected WBC (auto) Cancelled RBC Cancelled Hgb Cancelled Hct Cancelled MCV Cancelled MCH Cancelled MCHC Cancelled RDW Cancelled Plt Count Cancelled MPV Cancelled Absolute Neuts (auto) Cancelled Neutrophils % Cancelled Neutrophils % (Manual) Band Neutrophils % Lymphocytes % Cancelled Lymphocytes % (Manual) Monocytes % Cancelled Monocytes % (Manual) Eosinophils % Cancelled Eosinophils % (Manual) Basophils % Cancelled Basophils % (Manual) Myelocytes % (Man) Promyelocytes % (Man) Blast Cells % (Manual) Nucleated RBC % Cancelled Metamyelocytes Hypochromia Platelet Estimate Cancelled Platelet Comment Cancelled Polychromasia Poikilocytosis Anisocytosis Microcytosis Macrocytosis Target Cells Tear Drop Cells Ovalocytes Schistocytes PT with INR INR PTT (Actin FS) Fibrinogen VBG pH POC VBG pCO2 POC VBG pO2 VBG HCO3 VBG O2 Sat (Johan) VBG Base Excess Sodium Potassium Chloride Carbon Dioxide Anion Gap BUN Creatinine Est GFR (CKD-EPI)AfAm Est GFR (CKD-EPI)NonAf POC Glucometer Random Glucose Hemoglobin A1c % Lactic Acid Calcium Phosphorus Magnesium Iron TIBC Iron Saturation Unsaturated IBC Ferritin Total Bilirubin Direct Bilirubin AST ALT Alkaline Phosphatase Ammonia < 10 L LD Total Creatine Kinase Troponin I Total Protein Albumin Lipase Vitamin B12 Serum Folate Urine Color Urine Appearance Urine pH Ur Specific [place] Urine Protein Urine Glucose (UA) Urine Ketones Urine Blood Urine Nitrite Urine Bilirubin Urine Urobilinogen Ur Leukocyte Esterase Urine WBC (Auto) Urine RBC (Auto) Urine Casts (Auto) U Epithel Cells (Auto) Urine Bacteria (Auto) Alcohol, Quantitative Blood Type A POSITIVE Antibody Screen 10/24/19 10/24/19 10/24/19 16:35 16:40 16:40 WBC Corrected WBC (auto) RBC Hgb Hct MCV MCH MCHC RDW Plt Count MPV Absolute Neuts (auto) Neutrophils % Neutrophils % (Manual) Band Neutrophils % Lymphocytes % Lymphocytes % (Manual) Monocytes % Monocytes % (Manual) Eosinophils % Eosinophils % (Manual) Basophils % Basophils % (Manual) Myelocytes % (Man) Promyelocytes % (Man) Blast Cells % (Manual) Nucleated RBC % Metamyelocytes Hypochromia Platelet Estimate Platelet Comment Polychromasia Poikilocytosis Anisocytosis Microcytosis Macrocytosis Target Cells Tear Drop Cells Ovalocytes Schistocytes PT with INR INR PTT (Actin FS) Fibrinogen VBG pH POC VBG pCO2 POC VBG pO2 VBG HCO3 VBG O2 Sat (Johan) VBG Base Excess Sodium 137 Potassium 3.9 Chloride 103 Carbon Dioxide 24 Anion Gap 10 BUN 37.3 H Creatinine 1.3 Est GFR (CKD-EPI)AfAm 59.73 Est GFR (CKD-EPI)NonAf 51.53 POC Glucometer Random Glucose 253 H Hemoglobin A1c % Lactic Acid 4.5 H* Calcium 8.9 Phosphorus Magnesium Iron TIBC Iron Saturation Unsaturated IBC Ferritin Total Bilirubin 10.7 H Direct Bilirubin AST 271 H ALT 267 H Alkaline Phosphatase 79 Ammonia LD Total Creatine Kinase 115 Troponin I 0.12 H Total Protein 6.1 L Albumin 2.9 L Lipase 49 L Vitamin B12 Serum Folate Urine Color Urine Appearance Urine pH Ur Specific [place] Urine Protein Urine Glucose (UA) Urine Ketones Urine Blood Urine Nitrite Urine Bilirubin Urine Urobilinogen Ur Leukocyte Esterase Urine WBC (Auto) Urine RBC (Auto) Urine Casts (Auto) U Epithel Cells (Auto) Urine Bacteria (Auto) Alcohol, Quantitative < 3 Blood Type Antibody Screen 10/24/19 10/24/19 10/24/19 16:40 16:40 16:40 WBC Corrected WBC (auto) RBC Hgb Hct MCV MCH MCHC RDW Plt Count MPV Absolute Neuts (auto) Neutrophils % Neutrophils % (Manual) Band Neutrophils % Lymphocytes % Lymphocytes % (Manual) Monocytes % Monocytes % (Manual) Eosinophils % Eosinophils % (Manual) Basophils % Basophils % (Manual) Myelocytes % (Man) Promyelocytes % (Man) Blast Cells % (Manual) Nucleated RBC % Metamyelocytes Hypochromia Platelet Estimate Platelet Comment Polychromasia Poikilocytosis Anisocytosis Microcytosis Macrocytosis Target Cells Tear Drop Cells Ovalocytes Schistocytes PT with INR 20.20 H INR 1.70 H PTT (Actin FS) 36.1 Fibrinogen VBG pH 7.41 POC VBG pCO2 39.1 POC VBG pO2 < 49 H VBG HCO3 24.5 VBG O2 Sat (Johan) 37.6 L VBG Base Excess 0.5 Sodium Potassium Chloride Carbon Dioxide Anion Gap BUN Creatinine Est GFR (CKD-EPI)AfAm Est GFR (CKD-EPI)NonAf POC Glucometer Random Glucose Hemoglobin A1c % Lactic Acid Calcium Phosphorus Magnesium Iron TIBC Iron Saturation Unsaturated IBC Ferritin Total Bilirubin Direct Bilirubin AST ALT Alkaline Phosphatase Ammonia LD Total Creatine Kinase Troponin I Total Protein Albumin Lipase Vitamin B12 Serum Folate Urine Color Urine Appearance Urine pH Ur Specific [place] Urine Protein Urine Glucose (UA) Urine Ketones Urine Blood Urine Nitrite Urine Bilirubin Urine Urobilinogen Ur Leukocyte Esterase Urine WBC (Auto) Urine RBC (Auto) Urine Casts (Auto) U Epithel Cells (Auto) Urine Bacteria (Auto) Alcohol, Quantitative Blood Type A POSITIVE Antibody Screen Negative 10/24/19 10/24/19 10/24/19 18:20 18:20 20:45 WBC 4.7 Corrected WBC (auto) RBC 4.75 Hgb 10.5 L Hct 32.4 L MCV 68.2 L MCH 22.1 L MCHC 32.4 RDW 16.4 H Plt Count 16 L* MPV 10.6 Absolute Neuts (auto) 3.8 Neutrophils % 79.6 Neutrophils % (Manual) 80.0 Band Neutrophils % 2.0 Lymphocytes % 8.9 Lymphocytes % (Manual) 8.0 Monocytes % 10.5 H Monocytes % (Manual) 10 Eosinophils % 0.8 Eosinophils % (Manual) Basophils % 0.2 Basophils % (Manual) Myelocytes % (Man) Promyelocytes % (Man) Blast Cells % (Manual) Nucleated RBC % 0 Metamyelocytes Hypochromia 2+ Platelet Estimate Decreased Platelet Comment Polychromasia Poikilocytosis Anisocytosis 1+ Microcytosis 1+ Macrocytosis Target Cells 1+ Tear Drop Cells Ovalocytes 1+ Schistocytes PT with INR INR PTT (Actin FS) Fibrinogen VBG pH POC VBG pCO2 POC VBG pO2 VBG HCO3 VBG O2 Sat (Johan) VBG Base Excess Sodium Potassium Chloride Carbon Dioxide Anion Gap BUN Creatinine Est GFR (CKD-EPI)AfAm Est GFR (CKD-EPI)NonAf POC Glucometer Random Glucose Hemoglobin A1c % Lactic Acid Calcium Phosphorus Magnesium Iron TIBC Iron Saturation Unsaturated IBC Ferritin Total Bilirubin Direct Bilirubin AST ALT Alkaline Phosphatase Ammonia LD Total Creatine Kinase Troponin I 0.09 H Total Protein Albumin Lipase Vitamin B12 Serum Folate Urine Color Dk yellow Urine Appearance Clear Urine pH 5.0 Ur Specific [place] 1.034 Urine Protein 1+ H Urine Glucose (UA) 3+ H Urine Ketones Trace H Urine Blood 1+ H Urine Nitrite Positive H Urine Bilirubin 2+ H Urine Urobilinogen 2.0 Ur Leukocyte Esterase Trace Urine WBC (Auto) 3 Urine RBC (Auto) 6 Urine Casts (Auto) 7 U Epithel Cells (Auto) 2.3 Urine Bacteria (Auto) 25.5 Alcohol, Quantitative Blood Type Antibody Screen 10/24/19 10/24/19 10/24/19 20:45 20:45 20:45 WBC Corrected WBC (auto) RBC Hgb Hct MCV MCH MCHC RDW Plt Count MPV Absolute Neuts (auto) Neutrophils % Neutrophils % (Manual) Band Neutrophils % Lymphocytes % Lymphocytes % (Manual) Monocytes % Monocytes % (Manual) Eosinophils % Eosinophils % (Manual) Basophils % Basophils % (Manual) Myelocytes % (Man) Promyelocytes % (Man) Blast Cells % (Manual) Nucleated RBC % Metamyelocytes Hypochromia Platelet Estimate Platelet Comment Polychromasia Poikilocytosis Anisocytosis Microcytosis Macrocytosis Target Cells Tear Drop Cells Ovalocytes Schistocytes PT with INR INR PTT (Actin FS) Fibrinogen VBG pH POC VBG pCO2 POC VBG pO2 VBG HCO3 VBG O2 Sat (Johan) VBG Base Excess Sodium Potassium Chloride Carbon Dioxide Anion Gap BUN Creatinine Est GFR (CKD-EPI)AfAm Est GFR (CKD-EPI)NonAf POC Glucometer Random Glucose Hemoglobin A1c % Lactic Acid 2.5 H* Calcium Phosphorus Magnesium Iron TIBC Iron Saturation Unsaturated IBC Ferritin Total Bilirubin Direct Bilirubin 7.7 H AST ALT Alkaline Phosphatase Ammonia LD Total 203 Creatine Kinase Troponin I Total Protein Albumin Lipase Vitamin B12 Serum Folate 18 H Urine Color Urine Appearance Urine pH Ur Specific [place] Urine Protein Urine Glucose (UA) Urine Ketones Urine Blood Urine Nitrite Urine Bilirubin Urine Urobilinogen Ur Leukocyte Esterase Urine WBC (Auto) Urine RBC (Auto) Urine Casts (Auto) U Epithel Cells (Auto) Urine Bacteria (Auto) Alcohol, Quantitative Blood Type Antibody Screen 10/24/19 10/24/19 10/25/19 20:45 21:45 06:09 WBC 8.0 Corrected WBC (auto) RBC 4.99 Hgb 11.0 L Hct 33.7 L MCV 67.4 L MCH 22.0 L MCHC 32.5 RDW 16.5 H Plt Count 33 L* D MPV 8.7 D Absolute Neuts (auto) 6.8 Neutrophils % 85.3 H Neutrophils % (Manual) 87.0 H Band Neutrophils % 5.0 Lymphocytes % 2.9 L D Lymphocytes % (Manual) 3.0 L D Monocytes % 10.9 H Monocytes % (Manual) 4 Eosinophils % 0.5 Eosinophils % (Manual) 1.0 Basophils % 0.4 Basophils % (Manual) 0.0 Myelocytes % (Man) 0 Promyelocytes % (Man) 0 Blast Cells % (Manual) 0 Nucleated RBC % 0 Metamyelocytes 0 Hypochromia 2+ Platelet Estimate Decreased Platelet Comment Polychromasia Poikilocytosis 2+ Anisocytosis 2+ Microcytosis 2+ Macrocytosis 0 Target Cells 2+ Tear Drop Cells 1+ Ovalocytes Schistocytes 1+ PT with INR INR PTT (Actin FS) Fibrinogen VBG pH POC VBG pCO2 POC VBG pO2 VBG HCO3 VBG O2 Sat (Johan) VBG Base Excess Sodium Potassium Chloride Carbon Dioxide Anion Gap BUN Creatinine Est GFR (CKD-EPI)AfAm Est GFR (CKD-EPI)NonAf POC Glucometer Random Glucose Hemoglobin A1c % Lactic Acid Calcium Phosphorus Magnesium Iron TIBC Iron Saturation Unsaturated IBC Ferritin Total Bilirubin Direct Bilirubin AST ALT Alkaline Phosphatase Ammonia LD Total Creatine Kinase Troponin I Total Protein Albumin Lipase Vitamin B12 988 H Serum Folate Urine Color Urine Appearance Urine pH Ur Specific [place] Urine Protein Urine Glucose (UA) Urine Ketones Urine Blood Urine Nitrite Urine Bilirubin Urine Urobilinogen Ur Leukocyte Esterase Urine WBC (Auto) Urine RBC (Auto) Urine Casts (Auto) U Epithel Cells (Auto) Urine Bacteria (Auto) Alcohol, Quantitative Blood Type A POSITIVE Antibody Screen Negative 10/25/19 10/25/19 10/25/19 06:09 06:09 06:09 WBC Corrected WBC (auto) RBC Hgb Hct MCV MCH MCHC RDW Plt Count MPV Absolute Neuts (auto) Neutrophils % Neutrophils % (Manual) Band Neutrophils % Lymphocytes % Lymphocytes % (Manual) Monocytes % Monocytes % (Manual) Eosinophils % Eosinophils % (Manual) Basophils % Basophils % (Manual) Myelocytes % (Man) Promyelocytes % (Man) Blast Cells % (Manual) Nucleated RBC % Metamyelocytes Hypochromia Platelet Estimate Platelet Comment Polychromasia Poikilocytosis Anisocytosis Microcytosis Macrocytosis Target Cells Tear Drop Cells Ovalocytes Schistocytes PT with INR INR PTT (Actin FS) Fibrinogen VBG pH POC VBG pCO2 POC VBG pO2 VBG HCO3 VBG O2 Sat (Johan) VBG Base Excess Sodium 142 Potassium 3.9 Chloride 109 H Carbon Dioxide 24 Anion Gap 9 BUN 23.6 H Creatinine 0.9 Est GFR (CKD-EPI)AfAm 93.16 Est GFR (CKD-EPI)NonAf 80.38 POC Glucometer Random Glucose 167 H Hemoglobin A1c % 7.3 H Lactic Acid Calcium 8.1 L Phosphorus 1.5 L Magnesium 2.0 Iron 57 TIBC 162 L Iron Saturation 35 Unsaturated IBC 105 L Ferritin 1115.6 H Total Bilirubin 12.6 H Direct Bilirubin AST 256 H ALT 272 H Alkaline Phosphatase 68 Ammonia LD Total Creatine Kinase Troponin I 0.04 Total Protein 5.0 L Albumin 2.4 L Lipase Vitamin B12 Serum Folate Urine Color Urine Appearance Urine pH Ur Specific [place] Urine Protein Urine Glucose (UA) Urine Ketones Urine Blood Urine Nitrite Urine Bilirubin Urine Urobilinogen Ur Leukocyte Esterase Urine WBC (Auto) Urine RBC (Auto) Urine Casts (Auto) U Epithel Cells (Auto) Urine Bacteria (Auto) Alcohol, Quantitative Blood Type Antibody Screen 10/25/19 10/25/19 10/25/19 06:09 06:35 11:22 WBC Corrected WBC (auto) RBC Hgb Hct MCV MCH MCHC RDW Plt Count MPV Absolute Neuts (auto) Neutrophils % Neutrophils % (Manual) Band Neutrophils % Lymphocytes % Lymphocytes % (Manual) Monocytes % Monocytes % (Manual) Eosinophils % Eosinophils % (Manual) Basophils % Basophils % (Manual) Myelocytes % (Man) Promyelocytes % (Man) Blast Cells % (Manual) Nucleated RBC % Metamyelocytes Hypochromia Platelet Estimate Platelet Comment Polychromasia Poikilocytosis Anisocytosis Microcytosis Macrocytosis Target Cells Tear Drop Cells Ovalocytes Schistocytes PT with INR INR PTT (Actin FS) Fibrinogen 346.0 VBG pH POC VBG pCO2 POC VBG pO2 VBG HCO3 VBG O2 Sat (Johan) VBG Base Excess Sodium Potassium Chloride Carbon Dioxide Anion Gap BUN Creatinine Est GFR (CKD-EPI)AfAm Est GFR (CKD-EPI)NonAf POC Glucometer 163 Random Glucose Hemoglobin A1c % Lactic Acid 2.3 H* Calcium Phosphorus Magnesium Iron TIBC Iron Saturation Unsaturated IBC Ferritin Total Bilirubin Direct Bilirubin AST ALT Alkaline Phosphatase Ammonia LD Total Creatine Kinase Troponin I Total Protein Albumin Lipase Vitamin B12 Serum Folate Urine Color Urine Appearance Urine pH Ur Specific [place] Urine Protein Urine Glucose (UA) Urine Ketones Urine Blood Urine Nitrite Urine Bilirubin Urine Urobilinogen Ur Leukocyte Esterase Urine WBC (Auto) Urine RBC (Auto) Urine Casts (Auto) U Epithel Cells (Auto) Urine Bacteria (Auto) Alcohol, Quantitative Blood Type Antibody Screen 10/25/19 10/25/19 10/25/19 11:22 11:22 14:25 WBC 7.5 Corrected WBC (auto) RBC 5.01 Hgb 11.0 L Hct 34.0 L MCV 67.9 L MCH 21.9 L MCHC 32.3 RDW 16.6 H Plt Count 46 L D MPV 8.6 Absolute Neuts (auto) 6.0 Neutrophils % 80.6 Neutrophils % (Manual) 82.7 Band Neutrophils % 0.0 Lymphocytes % 8.1 D Lymphocytes % (Manual) 6.1 L D Monocytes % 10.5 H Monocytes % (Manual) 6 Eosinophils % 0.6 Eosinophils % (Manual) 0.0 D Basophils % 0.2 Basophils % (Manual) 0.0 Myelocytes % (Man) 0 Promyelocytes % (Man) 0 Blast Cells % (Manual) 0 Nucleated RBC % 0 Metamyelocytes 0 Hypochromia 2+ Platelet Estimate Decreased Platelet Comment Polychromasia 1+ Poikilocytosis 2+ Anisocytosis 3+ Microcytosis 3+ Macrocytosis 0 Target Cells 2+ Tear Drop Cells Ovalocytes Schistocytes PT with INR INR PTT (Actin FS) Fibrinogen VBG pH POC VBG pCO2 POC VBG pO2 VBG HCO3 VBG O2 Sat (Johan) VBG Base Excess Sodium 144 Potassium 3.8 Chloride 111 H Carbon Dioxide 23 Anion Gap 10 BUN 24.0 H Creatinine 0.9 Est GFR (CKD-EPI)AfAm 93.16 Est GFR (CKD-EPI)NonAf 80.38 POC Glucometer 129 Random Glucose 136 H Hemoglobin A1c % Lactic Acid Calcium 9.0 Phosphorus Magnesium Iron TIBC Iron Saturation Unsaturated IBC Ferritin Total Bilirubin 14.4 H Direct Bilirubin AST 246 H ALT 274 H Alkaline Phosphatase 74 Ammonia LD Total Creatine Kinase Troponin I Total Protein 5.3 L Albumin 2.5 L Lipase Vitamin B12 Serum Folate Urine Color Urine Appearance Urine pH Ur Specific [place] Urine Protein Urine Glucose (UA) Urine Ketones Urine Blood Urine Nitrite Urine Bilirubin Urine Urobilinogen Ur Leukocyte Esterase Urine WBC (Auto) Urine RBC (Auto) Urine Casts (Auto) U Epithel Cells (Auto) Urine Bacteria (Auto) Alcohol, Quantitative Blood Type Antibody Screen Active Medications Folic Acid (Folic Acid -) 1 mg PO DAILY [facility] Last Admin: 10/25/19 10:03 Dose: 1 mg Sodium Chloride (Normal Saline -) 1,000 mls @ 100 mls/hr IV ASDIR [facility] Last Admin: 10/25/19 01:59 Dose: 100 mls/hr Metronidazole (Flagyl 500mg Premixed Ivpb -) 500 mg in 100 mls @ 100 mls/hr IVPB Q8H-IV JAYDON Last Admin: 10/25/19 10:02 Dose: 100 mls/hr Ceftriaxone Sodium 2 gm/ (Dextrose) 50 mls @ 50 mls/hr IVPB DAILY@2200 [facility] Insulin Aspart (Novolog Vial Sliding Scale -) 1 vial SQ ACHS [facility]; Protocol Last Admin: 10/25/19 14:27 Dose: Not Given Lorazepam (Ativan -) 2 mg PO DAILY PRN PRN Reason: ANXIETY Morphine Sulfate (Morphine Sulfate) 2 mg IVPUSH Q4H PRN PRN Reason: PAIN LEVEL 6-10 Nadolol (Corgard -) 20 mg PO DAILY [facility] Last Admin: 10/25/19 15:19 Dose: 20 mg Phytonadione (Aqua Mephyton Injection -) 5 mg SQ DAILY [facility] Stop: 10/27/19 11:30 Last Admin: 10/25/19 14:27 Dose: 5 mg Thiamine HCl (Vitamin B1 -) 100 mg PO DAILY [facility] Last Admin: 10/25/19 10:03 Dose: 100 mg ASSESSMENT/PLAN: 78 y/o male PMH DM, thalassemia minor, cirrhosis (h/o etoh abuse) and cholelidocholithiasis s/p ERCP with stent placement (2010) c/o abdominal pain here for care of cholelithiasis and co-morbid hepatocellular disease. US finding of cholelithiasis and CT significant for pericholecystic edema. Pt not compatible with MRCP given hardware in RIGHT hip. # Cholecystitis, hepatocellular disease - [facility] Discriminant Function for etoh Hepatitis score: 45.7, poor prognosis, would consider glucocorticoid treatment but will defer 2/2 active infection - Pentoxifylline(Trental) 400 mg PO TID - Rifaximin 550 mg PO BID - AST/ALT 246/274 - T bili 10.7-> 12.6 -> 14.4 - NS - Lactic acidosis resolving 4.5 -> 2.3 - Ceftriaxone 1 g IV QD - Metronidazole 500 mg IV q8h - GI consulted: comorbid stone disease and hepatocellular damage. ERCP would be therapeutic and not applicable in this case. MRCP preferred but not possible given hardware. Treat with pentoxifylline(Trental) 400 mg PO TID and rifaximin 550 mg PO BID # Thrombocytopenia - s/p 2 units platelets - PT, PT, INR, BT, fibrinogen, type and screen - Monitor for any signs of bleeding - Platelets should be above 50,000 for any surgical intervention - Vit K 5 mg SQ daily for 3 days - Avoid NSAIDS - FOBT # New onset Afib - Now NSR - No AC 2/2 thrombocytopenia - Cont. 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 to monitor - Regular diet # DVT prophylaxis - Regular ambulation # Disposition - Telemetry Praveen Valles MD Visit type - Emergency Visit Emergency Visit: No - New Patient This patient is new to me today: Yes Date on this admission: 10/26/19 - Critical Care Critical Care patient: No ATTENDING PHYSICIAN STATEMENT I saw and evaluated the patient. I reviewed the resident's note and discussed the case with the resident. I agree with the resident's findings and plan as documented. SUBJECTIVE: OBJECTIVE: ASSESSMENT AND PLAN:
[2019-10-25 15:16] LABS: RETICULOCYTES 1.61 % (0.5-1.5)
[2019-10-25] MEDS: NADOLOL 20 MG TABLET (FP) PO SCH (15:19)
--- NOTE | 2019-10-25 16:50 | CONSULT ---
Consult Consult Specialty:: Surgery Reason for Consultation:: Abdominal pain , jaundice. - History Source History Provided By: Family Member Limitations to Obtaining History: No Limitations - Past Medical History Hepatobiliary: Yes: Cirrhosis, Cholelithiasis - Alcohol/Substance Use Hx Alcohol Use: No - Smoking History Smoking history: Never smoked Have you smoked in the past 12 months: No Home Medications - Allergies Allergies/Adverse Reactions: Allergies Allergy/AdvReac Type Severity Reaction Status Date / Time No Known Allergies Allergy Verified 10/24/19 16:18 - Home Medications Home Medications: Ambulatory Orders Folic Acid 1 mg PO DAILY 10/24/19 Furosemide 20 mg PO DAILY 10/24/19 Glipizide 10 mg PO BID 10/24/19 Metoprolol Succinate [Toprol Xl] 25 mg PO DAILY 10/24/19 Review of Systems - Review of Systems Gastrointestinal: reports: No Symptoms Physical Exam Vital Signs: Vital Signs Temperature 98.2 F 10/25/19 14:00 Pulse Rate 116 H 10/25/19 14:00 Respiratory Rate 20 10/25/19 10:00 Blood Pressure 120/79 10/25/19 14:00 O2 Sat by Pulse Oximetry (%) 96 10/24/19 22:15 Gastrointestinal: Yes: Normal Bowel Sounds, Soft, Abdomen, Obese Labs: CBC, BMP 10/25/19 11:22 10/25/19 11:22 Imaging - Results Cat Scan: Report Reviewed, Image Reviewed Ultrasound: Report Reviewed, Image Reviewed Assessment/Plan 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 Splenomegaly. Muiltple gallstones. He has astent in the CBD, jaundice.] He is a vey poor candidated for surgery at [facility]. transfer to liver service.
--- NOTE | 2019-10-25 17:17 | PN ---
Teaching Attending Note Name of Resident: Praveen Valles ATTENDING PHYSICIAN STATEMENT I saw and evaluated the patient. I reviewed the resident's note and discussed the case with the resident. I agree with the resident's findings and plan as documented. SUBJECTIVE: Patient has no complains, no fever or chills, no shortness of brain, positive for jaundice. Vital Signs Temperature 98.2 F 10/25/19 14:00 Pulse Rate 116 H 10/25/19 14:00 Respiratory Rate 20 10/25/19 10:00 Blood Pressure 120/79 10/25/19 14:00 O2 Sat by Pulse Oximetry (%) 96 10/24/19 22:15 GENERAL: The patient is awake, alert, and oriented, in no acute distress. HEAD: Normal with no signs of trauma. EYES: PERRL, extraocular movements intact, positive for icteric conjunctiva, jaundiced ENT: Ears normal, oropharynx clear without exudates, moist mucous membranes. NECK: Trachea midline, full range of motion, supple. LUNGS: Breath sounds equal, clear to auscultation bilaterally, no wheezes, no crackles, no accessory muscle use. HEART: Regular rate and rhythm, S1, S2 without murmur, rub or gallop. ABDOMEN: Soft, NT,ND, no guarding, no rebound, positive for hepatosplenomegaly, no masses appreciated . EXTREMITIES: 2+ pulses, warm, well-perfused, no edema. NEUROLOGICAL: Cranial nerves II through XII grossly intact. Normal speech, gait is stable PSYCH: Normal mood, normal affect. SKIN: Warm, dry, normal turgor, yellow skin CBCD WBC 7.5 K/mm3 (4.0-10.0) 10/25/19 11:22 RBC 5.01 M/mm3 (4.00-5.60) 10/25/19 11:22 Hgb 11.0 GM/dL (11.7-16.9) L 10/25/19 11:22 Hct 34.0 % (35.4-49) L 10/25/19 11:22 MCV 67.9 fl (80-96) L 10/25/19 11:22 MCHC 32.3 g/dl (32.0-35.9) 10/25/19 11:22 RDW 16.6 % (11.9-15.9) H 10/25/19 11:22 Plt Count 46 K/MM3 (134-434) L D 10/25/19 11:22 MPV 8.6 fl (7.5-11.1) 10/25/19 11:22 CMP Sodium 144 mmol/L (136-145) 10/25/19 11:22 Potassium 3.8 mmol/L (3.5-5.1) 10/25/19 11:22 Chloride 111 mmol/L (98-107) H 10/25/19 11:22 Carbon Dioxide 23 mmol/L (21-32) 10/25/19 11:22 Anion Gap 10 MMOL/L (8-16) 10/25/19 11:22 BUN 24.0 mg/dL (7-18) H 10/25/19 11:22 Creatinine 0.9 mg/dL (0.55-1.3) 10/25/19 11:22 Random Glucose 136 mg/dL (74-106) H 10/25/19 11:22 Calcium 9.0 mg/dL (8.5-10.1) 10/25/19 11:22 Total Bilirubin 14.4 mg/dL (0.2-1) H 10/25/19 11:22 AST 246 U/L (15-37) H 10/25/19 11:22 ALT 274 U/L (13-61) H 10/25/19 11:22 Alkaline Phosphatase 74 U/L (45-117) 10/25/19 11:22 Total Protein 5.3 g/dl (6.4-8.2) L 10/25/19 11:22 Albumin 2.5 g/dl (3.4-5.0) L 10/25/19 11:22 CARDIAC ENZYMES Creatine Kinase 115 U/L (26-308) 10/24/19 16:40 Troponin I 0.04 ng/ml (0.00-0.05) 10/25/19 06:09 Current Medications Generic Name Dose Route Start Last Admin Trade Name Freq PRN Reason Stop Dose Admin Folic Acid 1 mg 10/25/19 10:00 10/25/19 10:03 Folic Acid - PO 1 mg DAILY JAYDON Administration Sodium Chloride 1,000 mls @ 100 mls/hr 10/25/19 01:15 10/25/19 01:59 Normal Saline - IV 100 mls/hr ASDIR JAYDON Administration Insulin Aspart 1 vial 10/25/19 07:00 10/25/19 14:27 Novolog Vial Sliding Scale - SQ Not Given ACHS [facility] Protocol Lorazepam 2 mg 10/25/19 02:52 Ativan - PO DAILY PRN ANXIETY Morphine Sulfate 2 mg 10/25/19 01:03 Morphine Sulfate IVPUSH Q4H PRN PAIN LEVEL 6-10 Nadolol 20 mg 10/25/19 11:30 10/25/19 15:19 Corgard - PO 20 mg DAILY JAYDON Administration Pentoxifylline 400 mg 10/25/19 17:30 Trental - PO TIDCM JAYDON Phytonadione 5 mg 10/25/19 11:30 10/25/19 14:27 Aqua Mephyton Injection - SQ 10/27/19 11:30 5 mg DAILY JAYDON Administration Rifaximin 550 mg 10/25/19 22:00 Xifaxan - PO BID [facility] Thiamine HCl 100 mg 10/25/19 10:00 10/25/19 10:03 Vitamin B1 - PO 100 mg DAILY JAYDON Administration Home Medications Medication Instructions Recorded Folic Acid 1 mg PO DAILY 10/24/19 Furosemide 20 mg PO DAILY 10/24/19 Glipizide 10 mg PO BID 10/24/19 Metoprolol Succinate [Toprol Xl] 25 mg PO DAILY 10/24/19 CT of abdomen and pelvis: findings consistent with liver cirrhosis, including a small heterogenous liver with irregular contour, splenomegaly, thrombosis of the main portal vein and extensive upper abdominal varices. trace ascites within pelvis. thick walled distended gallbladder with calculi. acute cholecystitis is suspected, hida scan may be warranted, no evidence of acute pathology within the abdomen or pelvis. 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
[2019-10-25] MEDS ORDERED: PENTOXIFYLLINE 400 MG TABLET.ER PO SCH (17:30)
[2019-10-25] MEDS: PENTOXIFYLLINE 400 MG TABLET.ER PO SCH (19:49)
--- NOTE | 2019-10-25 21:04 | PN ---
Teaching Attending Note Name of Resident: Richmond Wilhelm ATTENDING PHYSICIAN STATEMENT I saw and evaluated the patient. I reviewed the resident's note and discussed the case with the resident. I agree with the resident's findings and plan as documented. ASSESSMENT AND PLAN: Thrombocytopenia --due to cirrhosis/portal hypertension s/p 2 units monodonor platelets with improvement [place] [address] of abdomen and pelvis: findings consistent with liver cirrhosis, including a small heterogenous liver with irregular contour, splenomegaly, thrombosis of the main portal vein and extensive upper abdominal varices. trace ascites within pelvis. thick walled distended gallbladder with calculi. acute cholecystitis is suspected, High risk surgical candidate given cirrhosis/portal HTN aware of surgery teams recommendations GI follow up Will need platelets if bleeding or prior to any procedures Mild coagulaopathy due to antibiotics/liver disease--vit. K SC x 3 days Portal v. thrombosis --not a candidate for anticoagulation due to varices/ thrombocytopenia. High risk for bleeding
[2019-10-25] MEDS ORDERED: CEFTRIAXONE 2 GM in DEXTROSE 5%-WATER - 50 ML IVPB SCH (22:00)
[2019-10-25] MEDS: RIFAXIMIN 550 MG TABLET (UD) PO SCH (22:46)
[2019-10-26] MEDS: INSULIN SLIDING SCALE (NOVOLOG) 1 VIAL SQ SCH ×3 (06:30→18:14)
[2019-10-26 08:27] LABS: ALBUMIN 2.4 g/dl (3.4-5.0); BLOOD UREA NITROGEN 23.8 mg/dL (7-18); CALCIUM 8.1 mg/dL (8.5-10.1); CREATININE 0.8 mg/dL (0.55-1.3); PHOSPHOROUS 1.7 mg/dL (2.5-4.9); POTASSIUM 3.5 mmol/L (3.5-5.1); TOT PROT 4.9 g/dl (6.4-8.2)
[2019-10-26 08:42] LABS: BASO % 0.2 % (0-2.0); EOS % 0.4 % (0-4.5); HEMATOCRIT 36.7 % (35.4-49); LYMPH % 6.1 % (8-40); MCHC 32.6 g/dl (32.0-35.9); MEAN CELL VOLUME 67.5 fl (80-96); MONO % 9.4 % (3.8-10.2); NEUT % 83.9 % (42.8-82.8); PLATELET COUNT 65 K/MM3 (134-434); RBC 5.44 M/mm3 (4.00-5.60); RDW 16.6 % (11.9-15.9); WHITE BLOOD COUNT 11.2 K/mm3 (4.0-10.0)
[2019-10-26 08:44] LABS: BILIRUBIN,TOTAL 19.6 mg/dL (0.2-1)
[2019-10-26 08:52] LABS: MEAN PLT VOLUME 9.4 fl (7.5-11.1)
[2019-10-26 10:22] LABS: ANISOCYTOSIS 1+; MACROCYTOSIS 0; PLATELET ESTIMATE DECREASED; TARGET CELLS 2+; TEAR DROP CELLS 1+
--- NOTE | 2019-10-26 10:59 | PN ---
Progress Note, Physician History of Present Illness: Epigastric pain improved, afebrile, afib with improved rate-control. Denies chest pain or dyspnea. - Current Medication List Current Medications: Active Medications Folic Acid (Folic Acid -) 1 mg PO DAILY [facility] Last Admin: 10/25/19 10:03 Dose: 1 mg Sodium Chloride (Normal Saline -) 1,000 mls @ 100 mls/hr IV ASDIR [facility] Last Admin: 10/25/19 01:59 Dose: 100 mls/hr Insulin Aspart (Novolog Vial Sliding Scale -) 1 vial SQ ACHS [facility]; Protocol Last Admin: 10/26/19 06:30 Dose: Not Given Lorazepam (Ativan -) 2 mg PO DAILY PRN PRN Reason: ANXIETY Morphine Sulfate (Morphine Sulfate) 2 mg IVPUSH Q4H PRN PRN Reason: PAIN LEVEL 6-10 Nadolol (Corgard -) 20 mg PO DAILY [facility] Last Admin: 10/25/19 15:19 Dose: 20 mg Pentoxifylline (Trental -) 400 mg PO TIDCM [facility] Last Admin: 10/25/19 19:49 Dose: 400 mg Phytonadione (Aqua Mephyton Injection -) 5 mg SQ DAILY [facility] Stop: 10/27/19 11:30 Last Admin: 10/25/19 14:27 Dose: 5 mg Rifaximin (Xifaxan -) 550 mg PO BID [facility] Last Admin: 10/25/19 22:46 Dose: 550 mg Thiamine HCl (Vitamin B1 -) 100 mg PO DAILY [facility] Last Admin: 10/25/19 10:03 Dose: 100 mg - Objective Vital Signs: Vital Signs Temperature 97.8 F 10/26/19 06:00 Pulse Rate 93 H 10/26/19 06:00 Respiratory Rate 20 10/26/19 06:00 Blood Pressure 130/80 10/26/19 06:00 O2 Sat by Pulse Oximetry (%) 96 10/24/19 22:15 Constitutional: Yes: No Distress, Calm, Thin Eyes: Yes: Sclera Icterus Neck: Yes: Supple Cardiovascular: Yes: Pulse Irregular, Murmur (2/6 SM) Respiratory: Yes: Regular, Diminished Gastrointestinal: Yes: Soft, Hypoactive Bowel Sounds, Tenderness, Epigastrium Edema: No Labs: CBC, BMP 10/26/19 07:05 10/26/19 07:05 INR, PTT INR 1.70 (0.83-1.09) H 10/24/19 16:40 Fibrinogen 346.0 mg/dL (238-498) 10/25/19 11:22 - ....Imaging EKG: Report Reviewed (Tele: Rate-controlled afib) Problem List - Problems (1) Demand ischemia Code(s): I24.8 - OTHER FORMS OF ACUTE ISCHEMIC HEART DISEASE (2) Cirrhosis Code(s): K74.60 - UNSPECIFIED CIRRHOSIS OF LIVER Qualifiers: Hepatic cirrhosis type: alcoholic cirrhosis (3) Portal vein thrombosis Code(s): I81 - PORTAL VEIN THROMBOSIS (4) Coagulopathy Code(s): D68.9 - COAGULATION DEFECT, UNSPECIFIED (5) 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 Code(s): D69.59 - OTHER SECONDARY THROMBOCYTOPENIA; F10.20 - ALCOHOL DEPENDENCE , UNCOMPLICATED (6) Cholelithiasis Code(s): K80.20 - CALCULUS OF GALLBLADDER W/O CHOLECYSTITIS W/O OBSTRUCTION Qualifiers: Cholelithiasis location: gallbladder Cholecystitis presence: with cholecystitis Cholecystitis acuity: unspecified acuity Biliary obstruction: without biliary obstruction Qualified Code(s): K80.10 - Calculus of gallbladder with chronic cholecystitis without obstruction (7) Jaundice Code(s): R17 - UNSPECIFIED JAUNDICE (8) New onset a-fib Code(s): I48.91 - UNSPECIFIED ATRIAL FIBRILLATION Assessment/Plan 10/25/2019 Echo: Normal LV size and fxn LVEF 55-60%, mild-mod MR, mod MG 24 mmHg, mild-mod AR 10/24/[address]: Cirrhosis, splenomegaly, thrombosis of main portal vein and extensive varices, trace ascites, acute cholecystitis 10/24/2019 Abd US: Multiple cholelithiasis, no biliary duct dilatation, no AAA, IVC patent 1. Newly diagnosed rapid atrial fibrillation 2. Cholelithiasis with Possible Acute Cholecystitis 3. ESLD 2/2 ETOH with portal vein thrombosis, portal HTN, varices, splenomegaly , abnl LFTs 4. Thrombocytopenia 2/2 #3 5. Pre-op CV evaluation 6. JOHNATHON resolved 7. ETOH dependence 8. Demand ischemia 9. Microcytic anemia h/o thalassemia minor 10. Coagulopathy due to #3 11. Type 2 DM not at goal control 12. Moderate aortic valve stenosis P:1. F/u HIDA scan, d/c IVF 2. Empiric abx for biliary source 3. Increase Nadolol 40 qd with uptitration as tolerated for rate-control and decrease portal pressures 4. Trops downtrending, trend LFTs 5. No a/c due to severe thrombocytopenia, varices and coagulopathy 6. Defer surgery pending adequate rate-control, correct coagulopathy with vit K , high risk surgical candidate per surgery 7. Lasix, Aldactone, rifaxamin and lactulose with monitor diuretic response, renal fxn and electrolytes 8. Librium detox, vitamins, portfolio specialist
[2019-10-26] MEDS ORDERED: NADOLOL 20 MG TABLET (FP) PO SCH (11:06)
[2019-10-26] MEDS ORDERED: PT OWN MED DRAWER 7, Y5N ONE (11:10)
--- NOTE | 2019-10-26 11:16 | PN ---
Physical Exam: SUBJECTIVE: Patient seen and examined at bedside. He denies abdominal pain and diarrhea. He offers no complaints this morning. No nausea, vomiting, and fever. reports pt has been actively drinking and rehab discussed. OBJECTIVE: Vital Signs Period Temp Pulse Resp BP Sys/Negron Pulse Ox Last 24 Hr 97.5 F-98.9 F 93-116 20-20 109-130/60-89 GENERAL: AOx3, in no acute distress, jaundiced, Welsh speaking HEAD: NCAT EYES: SERA, EOMI, scleral icterus ENT: Ears normal, nares patent, oropharynx clear without exudates. Moist mucous membranes. NECK: Normal range of motion, supple without lymphadenopathy, JVD, or masses. LUNGS: CTAB. No wheezes, and no crackles. No accessory muscle use. HEART: Regular rate. s1 s2 present with 3/5 pansystolic murmur ABDOMEN: Soft, BS present in all 4 quadrants, non-distended, no JVD, MUSCULOSKELETAL: No bony deformities or tenderness. No CVA tenderness. UPPER EXTREMITIES: 2+ pulses, warm, well-perfused. No cyanosis. No clubbing. No peripheral edema. LOWER EXTREMITIES: 2+ pulses, warm, well-perfused. No calf tenderness. No peripheral edema. NEUROLOGICAL: No focal deficits. Cranial nerves II-XII intact. Normal speech. Gait not appreciated. PSYCHIATRIC: Cooperative. Good eye contact. Appropriate mood and affect. SKIN: Warm, dry, normal turgor, no rashes or lesions noted, normal capillary refill. Laboratory Results - last 24 hr 10/24/19 10/25/19 10/25/19 20:45 06:09 11:22 WBC RBC Hgb Hct MCV MCH MCHC RDW Plt Count MPV Absolute Neuts (auto) Neutrophils % Neutrophils % (Manual) 87.0 H Band Neutrophils % 5.0 Lymphocytes % Lymphocytes % (Manual) 3.0 L D Monocytes % Monocytes % (Manual) 4 Eosinophils % Eosinophils % (Manual) 1.0 Basophils % Basophils % (Manual) 0.0 Myelocytes % (Man) 0 Promyelocytes % (Man) 0 Blast Cells % (Manual) 0 Nucleated RBC % 0 Metamyelocytes 0 Hypochromia 2+ Platelet Estimate Decreased Polychromasia Poikilocytosis 2+ Anisocytosis 2+ Microcytosis 2+ Macrocytosis 0 Target Cells 2+ Tear Drop Cells 1+ Schistocytes 1+ Retic Count 1.61 H Haptoglobin 46 Fibrinogen 346.0 Sodium Potassium Chloride Carbon Dioxide Anion Gap BUN Creatinine Est GFR (CKD-EPI)AfAm Est GFR (CKD-EPI)NonAf POC Glucometer Random Glucose Calcium Phosphorus Magnesium Total Bilirubin Direct Bilirubin AST ALT Alkaline Phosphatase Ammonia Total Protein Albumin 10/25/19 10/25/19 10/25/19 11:22 11:22 14:25 WBC 7.5 RBC 5.01 Hgb 11.0 L Hct 34.0 L MCV 67.9 L MCH 21.9 L MCHC 32.3 RDW 16.6 H Plt Count 46 L D MPV 8.6 Absolute Neuts (auto) 6.0 Neutrophils % 80.6 Neutrophils % (Manual) 82.7 Band Neutrophils % 0.0 Lymphocytes % 8.1 D Lymphocytes % (Manual) 6.1 L D Monocytes % 10.5 H Monocytes % (Manual) 6 Eosinophils % 0.6 Eosinophils % (Manual) 0.0 D Basophils % 0.2 Basophils % (Manual) 0.0 Myelocytes % (Man) 0 Promyelocytes % (Man) 0 Blast Cells % (Manual) 0 Nucleated RBC % 0 Metamyelocytes 0 Hypochromia 2+ Platelet Estimate Decreased Polychromasia 1+ Poikilocytosis 2+ Anisocytosis 3+ Microcytosis 3+ Macrocytosis 0 Target Cells 2+ Tear Drop Cells Schistocytes Retic Count Haptoglobin Fibrinogen Sodium 144 Potassium 3.8 Chloride 111 H Carbon Dioxide 23 Anion Gap 10 BUN 24.0 H Creatinine 0.9 Est GFR (CKD-EPI)AfAm 93.16 Est GFR (CKD-EPI)NonAf 80.38 POC Glucometer 129 Random Glucose 136 H Calcium 9.0 Phosphorus Magnesium Total Bilirubin 14.4 H Direct Bilirubin AST 246 H ALT 274 H Alkaline Phosphatase 74 Ammonia Total Protein 5.3 L Albumin 2.5 L 10/25/19 10/25/19 10/26/19 17:29 22:45 06:17 WBC RBC Hgb Hct MCV MCH MCHC RDW Plt Count MPV Absolute Neuts (auto) Neutrophils % Neutrophils % (Manual) Band Neutrophils % Lymphocytes % Lymphocytes % (Manual) Monocytes % Monocytes % (Manual) Eosinophils % Eosinophils % (Manual) Basophils % Basophils % (Manual) Myelocytes % (Man) Promyelocytes % (Man) Blast Cells % (Manual) Nucleated RBC % Metamyelocytes Hypochromia Platelet Estimate Polychromasia Poikilocytosis Anisocytosis Microcytosis Macrocytosis Target Cells Tear Drop Cells Schistocytes Retic Count Haptoglobin Fibrinogen Sodium Potassium Chloride Carbon Dioxide Anion Gap BUN Creatinine Est GFR (CKD-EPI)AfAm Est GFR (CKD-EPI)NonAf POC Glucometer 107 173 138 Random Glucose Calcium Phosphorus Magnesium Total Bilirubin Direct Bilirubin AST ALT Alkaline Phosphatase Ammonia Total Protein Albumin 10/26/19 10/26/19 10/26/19 07:05 07:05 07:05 WBC 11.2 H RBC 5.44 Hgb 12.0 Hct 36.7 MCV 67.5 L MCH 22.0 L MCHC 32.6 RDW 16.6 H Plt Count 65 L D MPV 9.4 Absolute Neuts (auto) 9.4 H Neutrophils % 83.9 H Neutrophils % (Manual) 91.0 H Band Neutrophils % 0.0 Lymphocytes % 6.1 L D Lymphocytes % (Manual) 3.0 L D Monocytes % 9.4 Monocytes % (Manual) 5 Eosinophils % 0.4 Eosinophils % (Manual) 1.0 D Basophils % 0.2 Basophils % (Manual) 0.0 Myelocytes % (Man) 0 Promyelocytes % (Man) 0 Blast Cells % (Manual) 0 Nucleated RBC % 0 Metamyelocytes 0 Hypochromia 0 Platelet Estimate Decreased Polychromasia 1+ Poikilocytosis 2+ Anisocytosis 1+ Microcytosis 1+ Macrocytosis 0 Target Cells 2+ Tear Drop Cells 1+ Schistocytes 1+ Retic Count Haptoglobin Fibrinogen Sodium 144 Potassium 3.5 Chloride 112 H Carbon Dioxide 22 Anion Gap 10 BUN 23.8 H Creatinine 0.8 Est GFR (CKD-EPI)AfAm 97.78 Est GFR (CKD-EPI)NonAf 84.37 POC Glucometer Random Glucose 154 H Calcium 8.1 L Phosphorus 1.7 L Magnesium 2.0 Total Bilirubin 19.6 H* D Direct Bilirubin AST 153 H ALT 229 H Alkaline Phosphatase 91 Ammonia 18.50 Total Protein 4.9 L Albumin 2.4 L 10/26/19 07:05 WBC RBC Hgb Hct MCV MCH MCHC RDW Plt Count MPV Absolute Neuts (auto) Neutrophils % Neutrophils % (Manual) Band Neutrophils % Lymphocytes % Lymphocytes % (Manual) Monocytes % Monocytes % (Manual) Eosinophils % Eosinophils % (Manual) Basophils % Basophils % (Manual) Myelocytes % (Man) Promyelocytes % (Man) Blast Cells % (Manual) Nucleated RBC % Metamyelocytes Hypochromia Platelet Estimate Polychromasia Poikilocytosis Anisocytosis Microcytosis Macrocytosis Target Cells Tear Drop Cells Schistocytes Retic Count Haptoglobin Fibrinogen Sodium Potassium Chloride Carbon Dioxide Anion Gap BUN Creatinine Est GFR (CKD-EPI)AfAm Est GFR (CKD-EPI)NonAf POC Glucometer Random Glucose Calcium Phosphorus Magnesium Total Bilirubin Direct Bilirubin 13.3 H AST ALT Alkaline Phosphatase Ammonia Total Protein Albumin Active Medications Folic Acid (Folic Acid -) 1 mg PO DAILY [facility] Last Admin: 10/26/19 11:23 Dose: 1 mg Ceftriaxone Sodium 1 gm/ (Dextrose) 50 mls @ 100 mls/hr IVPB DAILY [facility] Insulin Aspart (Novolog Vial Sliding Scale -) 1 vial SQ ACHS [facility]; Protocol Last Admin: 10/26/19 12:48 Dose: 2 units Lorazepam (Ativan -) 2 mg PO DAILY PRN PRN Reason: ANXIETY Nadolol (Corgard -) 40 mg PO DAILY [facility] Pentoxifylline (Trental -) 400 mg PO TIDCM [facility] Last Admin: 10/26/19 11:24 Dose: 400 mg Phytonadione (Aqua Mephyton Injection -) 5 mg SQ DAILY [facility] Stop: 10/27/19 11:30 Last Admin: 10/26/19 11:23 Dose: 5 mg Rifaximin (Xifaxan -) 550 mg PO BID [facility] Last Admin: 10/26/19 11:23 Dose: 550 mg Thiamine HCl (Vitamin B1 -) 100 mg PO DAILY [facility] Last Admin: 10/26/19 11:24 Dose: 100 mg Ultrasound: Thickening of the gallbladder wall, cholelithiasis and normal CBD. ASSESSMENT/PLAN: 78 y/o male PMH DM, thalassemia minor, cirrhosis (h/o etoh abuse) and cholelidocholithiasis s/p ERCP with stent placement (2010) c/o abdominal pain here for care of cholelithiasis and co-morbid hepatocellular disease. US finding of cholelithiasis and CT significant for pericholecystic edema. Pt not compatible with MRCP given hardware in RIGHT hip. Not a likely candidate for surgical intervention in this institution. # Cholecystitis, hepatocellular disease - [facility] Discriminant Function for etoh Hepatitis score: 45.7, poor prognosis, would consider glucocorticoid treatment but will defer 2/2 active infection and instead administer pentoxifylline. - Discussed etoh rehab with patient and at bedside; would like time to think about it. - Pentoxifylline(Trental) 400 mg PO TID - Rifaximin 550 mg PO BID - AST/ALT 246/274 - T bili 10.7-> 12.6 -> 14.4 ->19.6 - NS - Lactic acidosis resolving 4.5 -> 2.3 - Ceftriaxone 1 g IV QD - Metronidazole 500 mg IV q8h - GI consulted: comorbid stone disease and hepatocellular damage. ERCP would be therapeutic and not applicable in this case. MRCP preferred but not possible given hardware. Treat with pentoxifylline(Trental) 400 mg PO TID and rifaximin 550 mg PO BID - Surgery consulted: Very poor candidate for surgery at [facility]. # Thrombocytopenia - 2/2 cirrhosis/portal hypertension - s/p 2 units platelets [place] [address] [place] [address] - PT, INR, BT, fibrinogen, type and screen - Monitor for any signs of bleeding - Platelets should be above 50,000 for any surgical intervention - Vit K 5 mg SQ daily for 3 days - Avoid NSAIDS - FOBT - Heme/onc consulted # New onset Afib - Now NSR - No AC 2/2 thrombocytopenia - Cont. telemetry - Cardio consulted: Nadolol 40 mg PO QD - Echo: EF 55-60%, moderate/severe aortic valve thickening, no regional wall motion abnormalities # Troponemia - Likely 2/2 demand - Resolved: 0.12->0.09->0.04 # Thalassemia - High Ferritin 1156, NL Fe 57, Low TIBC 162, High retic 1.61 - Folate 1mg PO QD - F/u heme/onc recommendations # UTI - Ceftriaxone 1 g IV QD - Metronidazole 500 mg IV q8h # DM - Hold home regimen - ISS ACHS # Etoh abuse - Librium detox - b12, folate, thiamine - research specialist # F/E/N - NS - Cont. to monitor - Regular diet # DVT prophylaxis - Regular ambulation - No AC 2/2 thrombocytopenia # Disposition - Telemetry Praveen Valles MD Visit type - Emergency Visit Emergency Visit: No - New Patient This patient is new to me today: No - Critical Care Critical Care patient: No ATTENDING PHYSICIAN STATEMENT I saw and evaluated the patient. I reviewed the resident's note and discussed the case with the resident. I agree with the resident's findings and plan as documented. SUBJECTIVE: OBJECTIVE: ASSESSMENT AND PLAN:
--- NOTE | 2019-10-26 11:21 | CON.GI ---
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 Ultrasound has thickening of the gallbladder wall, cholelithiasis and normal CBD. He started to drink alcohol the past year according to his - Past Medical History Hepatobiliary: Yes: Cirrhosis, Cholelithiasis - Alcohol/Substance Use Hx Alcohol Use: No - Smoking History Smoking history: Never smoked Have you smoked in the past 12 months: No Home Medications - Allergies Allergies/Adverse Reactions: Allergies Allergy/AdvReac Type Severity Reaction Status Date / Time No Known Allergies Allergy Verified 10/24/19 16:18 - Home Medications Home Medications: Ambulatory Orders Folic Acid 1 mg PO DAILY 10/24/19 Furosemide 20 mg PO DAILY 10/24/19 Glipizide 10 mg PO BID 10/24/19 Metoprolol Succinate [Toprol Xl] 25 mg PO DAILY 10/24/19 Physical Exam-GI Vital Signs: Vital Signs Temperature 97.8 F 10/26/19 06:00 Pulse Rate 93 H 10/26/19 06:00 Respiratory Rate 20 10/26/19 06:00 Blood Pressure 130/80 10/26/19 06:00 O2 Sat by Pulse Oximetry (%) 96 10/24/19 22:15 Constitutional: Yes: Well Nourished Eyes: Yes: Conjunctiva Clear HENT: Yes: Atraumatic, Tonsillar Exudate Cardiovascular: Yes: Regular Rate and Rhythm Respiratory: Yes: CTA Bilaterally ...Palpate: Yes: Soft. No: Firm/Rigid, Guarding, Hepatomegaly, Mass, Pulsatile Mass, Splenomegaly, Tenderness Labs: CBC, BMP 10/26/19 07:05 10/26/19 07:05 INR, PTT INR 1.70 (0.83-1.09) H 10/24/19 16:40 Fibrinogen 346.0 mg/dL (238-498) 10/25/19 11:22 Imaging - Results Cat Scan: Report Reviewed Ultrasound: Report Reviewed Problem List - Problems (1) Hepatic failure Assessment/Plan: secondary to alcohol use > continue Ceftriaxone Xifaxan 550mg Detox protocol Pentoxyfilline 400mg tid Code(s): K72.90 - HEPATIC FAILURE, UNSPECIFIED WITHOUT COMA
[2019-10-26] MEDS: NADOLOL 20 MG TABLET (FP) PO SCH (11:23)
[2019-10-26] MEDS: PHYTONADIONE 10 MG/1 ML AMP SQ SCH (11:23)
[2019-10-26] MEDS: FOLIC ACID 1 MG TABLET (FP) PO SCH (11:23)
[2019-10-26] MEDS: RIFAXIMIN 550 MG TABLET (UD) PO SCH (11:23)
[2019-10-26] MEDS: PENTOXIFYLLINE 400 MG TABLET.ER PO SCH ×3 (11:24→18:01)
[2019-10-26] MEDS: THIAMINE HCL 100 MG TABLET (FP) PO SCH (11:24)
[2019-10-26] MEDS ORDERED: CEFTRIAXONE 1 GM in DEXTROSE 5%-WATER - 50 ML IVPB SCH (11:30)
--- NOTE | 2019-10-26 12:55 | PN ---
Teaching Attending Note Name of Resident: Praveen Valles ATTENDING PHYSICIAN STATEMENT I saw and evaluated the patient. I reviewed the resident's note and discussed the case with the resident. I agree with the resident's findings and plan as documented. SUBJECTIVE: Patient has no complains, no fever or chills, no shortness of brain, positive for jaundice. Vital Signs Temperature 97.8 F 10/26/19 06:00 Pulse Rate 93 H 10/26/19 06:00 Respiratory Rate 20 10/26/19 06:00 Blood Pressure 130/80 10/26/19 06:00 O2 Sat by Pulse Oximetry (%) 96 10/24/19 22:15 GENERAL: The patient is awake, alert, and oriented, in no acute distress. HEAD: Normal with no signs of trauma. EYES: PERRL, extraocular movements intact, positive for icteric conjunctiva, jaundiced ENT: Ears normal, oropharynx clear without exudates, moist mucous membranes. NECK: Trachea midline, full range of motion, supple. LUNGS: Breath sounds equal, clear to auscultation bilaterally, no wheezes, no crackles, no accessory muscle use. HEART: Regular rate and rhythm, S1, S2 without murmur, rub or gallop. ABDOMEN: Soft, yellow abdomen, mild tenderness on palpations , no guarding, no rebound, positive for hepatosplenomegaly, no masses appreciated . EXTREMITIES: 2+ pulses, warm, well-perfused, no edema. NEUROLOGICAL: Cranial nerves II through XII grossly intact. Normal speech, gait is stable PSYCH: Normal mood, normal affect. SKIN: Warm, dry, normal turgor, yellow skin CBCD WBC 11.2 K/mm3 (4.0-10.0) H 10/26/19 07:05 RBC 5.44 M/mm3 (4.00-5.60) 10/26/19 07:05 Hgb 12.0 GM/dL (11.7-16.9) 10/26/19 07:05 Hct 36.7 % (35.4-49) 10/26/19 07:05 MCV 67.5 fl (80-96) L 10/26/19 07:05 MCHC 32.6 g/dl (32.0-35.9) 10/26/19 07:05 RDW 16.6 % (11.9-15.9) H 10/26/19 07:05 Plt Count 65 K/MM3 (134-434) L D 10/26/19 07:05 MPV 9.4 fl (7.5-11.1) 10/26/19 07:05 CMP Sodium 144 mmol/L (136-145) 10/26/19 07:05 Potassium 3.5 mmol/L (3.5-5.1) 10/26/19 07:05 Chloride 112 mmol/L (98-107) H 10/26/19 07:05 Carbon Dioxide 22 mmol/L (21-32) 10/26/19 07:05 Anion Gap 10 MMOL/L (8-16) 10/26/19 07:05 BUN 23.8 mg/dL (7-18) H 10/26/19 07:05 Creatinine 0.8 mg/dL (0.55-1.3) 10/26/19 07:05 Random Glucose 154 mg/dL (74-106) H 10/26/19 07:05 Calcium 8.1 mg/dL (8.5-10.1) L 10/26/19 07:05 Total Bilirubin 19.6 mg/dL (0.2-1) H* D 10/26/19 07:05 AST 153 U/L (15-37) H 10/26/19 07:05 ALT 229 U/L (13-61) H 10/26/19 07:05 Alkaline Phosphatase 91 U/L (45-117) 10/26/19 07:05 Total Protein 4.9 g/dl (6.4-8.2) L 10/26/19 07:05 Albumin 2.4 g/dl (3.4-5.0) L 10/26/19 07:05 CARDIAC ENZYMES Creatine Kinase 115 U/L (26-308) 10/24/19 16:40 Troponin I 0.04 ng/ml (0.00-0.05) 10/25/19 06:09 Current Medications Generic Name Dose Route Start Last Admin Trade Name Tamia PRN Reason Stop Dose Admin Folic Acid 1 mg 10/25/19 10:00 10/26/19 11:23 Folic Acid - PO 1 mg DAILY JAYDON Administration Ceftriaxone Sodium 1 gm/ 50 mls @ 100 mls/hr 10/26/19 11:30 Dextrose IVPB DAILY JAYDON Insulin Aspart 1 vial 10/25/19 07:00 10/26/19 12:48 Novolog Vial Sliding Scale - SQ 2 units ACHS JAYDON Administration Protocol Lorazepam 2 mg 10/25/19 02:52 Ativan - PO DAILY PRN ANXIETY Nadolol 40 mg 10/26/19 11:06 Corgard - PO DAILY JAYDON Pentoxifylline 400 mg 10/25/19 18:45 10/26/19 11:24 Trental - PO 400 mg TIDCM JAYDON Administration Phytonadione 5 mg 10/25/19 11:30 10/26/19 11:23 Aqua Mephyton Injection - SQ 10/27/19 11:30 5 mg DAILY JAYDON Administration Rifaximin 550 mg 10/25/19 22:00 10/26/19 11:23 Xifaxan - PO 550 mg BID JAYDON Administration Thiamine HCl 100 mg 10/25/19 10:00 10/26/19 11:24 Vitamin B1 - PO 100 mg DAILY JAYDON Administration Home Medications Medication Instructions Recorded Folic Acid 1 mg PO DAILY 10/24/19 Furosemide 20 mg PO DAILY 10/24/19 Glipizide 10 mg PO BID 10/24/19 Metoprolol Succinate [Toprol Xl] 25 mg PO DAILY 10/24/19 CT of abdomen and pelvis: findings consistent with liver cirrhosis, including a small heterogenous liver with irregular contour, splenomegaly, thrombosis of the main portal vein and extensive upper abdominal varices. trace ascites within pelvis. thick walled distended gallbladder with calculi. acute cholecystitis is suspected, hida scan may be warranted, no evidence of acute pathology within the abdomen or pelvis. Assessment and plan: Patient is an 78yom with PMHx of alcohol cirrhosis,s/p ERCP s/p removal of stone and stent in 2011,presented with RUQ pain, jaundice and diffuse abdominal pain. As per , he started to drink alcohol the past year. 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 #Thick walled distended gallbladder with calculi #acute cholecystitis cannot be rulled out #acute transaminitis #Acute Leukocytosis continue IV Rocephin/Rifaximin IVF repeat bilirubin level, direct and indirect in am cmp levels electrolytes GI/hem onc/cardio on the case surgery on the case dr Hickman meld score is 22, discriment score id 66, will continue pentoxifylline continue sq vit k continue rifaximin 550mg /vit k/corgard/folic acid/thiamine/Rocephin IV discussed with GI dr paulson Surgery on the case discussed with the transfer center , accepted at [facility], will transfer the patient. Discussed with , discussed with the resident.
[2019-10-26 15:28] VITALS: BP 123/70; PULSE 73; TEMP 98
[2019-10-26] MEDS ORDERED: DEXTROSE 5%-WATER - 50 ML IVPB ONE (17:57)
[2019-10-26] MEDS ORDERED: cefTRIAXone SODIUM 1 GM VIAL ONE (17:57)
--- NOTE | 2019-10-27 22:22 | DS ---
Physical Exam: SUBJECTIVE: Patient seen and examined at bedside. He offers no complaints. He denies abdominal pain, nausea, vomiting and diarrhea. OBJECTIVE: PHYSICAL EXAM GENERAL: AOx3, in no acute distress, jaundiced, English speaking HEAD: NCAT EYES: SERA, EOMI, scleral icterus ENT: Ears normal, nares patent, oropharynx clear without exudates. Moist mucous membranes. NECK: Normal range of motion, supple without lymphadenopathy, JVD, or masses. LUNGS: CTAB. No wheezes, and no crackles. No accessory muscle use. HEART: Regular rate. s1 s2 present with 3/5 pansystolic murmur ABDOMEN: Soft, BS present in all 4 quadrants, non-distended, no JVD, MUSCULOSKELETAL: No bony deformities or tenderness. No CVA tenderness. UPPER EXTREMITIES: 2+ pulses, warm, well-perfused. No cyanosis. No clubbing. No peripheral edema. LOWER EXTREMITIES: 2+ pulses, warm, well-perfused. No calf tenderness. No peripheral edema. NEUROLOGICAL: No focal deficits. Cranial nerves II-XII intact. Normal speech. Gait not appreciated. PSYCHIATRIC: Cooperative. Good eye contact. Appropriate mood and affect. SKIN: Warm, dry, normal turgor, no rashes or lesions noted, normal capillary refill. HOSPITAL COURSE: Date of Admission:10/24/19 78 y/o male PMH DM, thalassemia minor, cirrhosis (h/o etoh abuse) and cholelidocholithiasis s/p ERCP with stent placement (2010) c/o abdominal pain here for care of cholelithiasis and co-morbid hepatocellular disease. US finding of cholelithiasis and CT significant for pericholecystic edema. Pt not compatible with MRCP given hardware in RIGHT hip. Not a likely candidate for surgical intervention in this institution. His cholecystitis, hepatocellular disease was notable for Maddrey Discriminant Function for etoh Hepatitis score: 45.7, poor prognosis, would consider glucocorticoid treatment but will defer 2/ 2 active infection and instead administer pentoxifylline. Discussed etoh rehab with patient and at bedside; would like time to think about it. Pentoxifylline(Trental) 400 mg PO TID and- Rifaximin 550 mg PO BID administered. AST/ALT 246/274, T bili 10.7-> 12.6 -> 14.4 ->19.6. His lactic acidosis was resolving 4.5 -> 2.3. Ceftriaxone 1 g IV QD and metronidazole 500 mg IV q8h. GI was consulted and noted comorbid stone disease and hepatocellular damage. ERCP would be therapeutic and not applicable in this case. MRCP preferred but not possible given hardware. Surgery was consulted and noted that pt is a very poor candidate for surgery at [facility]. Concurrent thrombocytopenia noted 2/2 cirrhosis/portal hypertension. He is s/p 2 units platelets [place] [address] [place] [address]. Vit K 5 mg SQ daily for 3 days. New onset Afib but NSR achieved. No AC 2/2 thrombocytopenia. He was monitored in telemetry. Cardio consulted and rec Nadolol 40 mg PO QD. Last echo showed EF 55-60%, moderate/severe aortic valve thickening, no regional wall motion abnormalities. A troponemia was noted and likely 2/2 demand ; resolved: 0.12->0.09->0.04. H/o thalassemia; High Ferritin 1156, NL Fe 57, Low TIBC 162, High retic 1.61. Folate 1mg PO QD.UTI tx with Ceftriaxone 1 g IV QD and Metronidazole 500 mg IV q8h. DM tx with ISS ACHS. Active Etoh abuse noted by family/ and he was provided librium detox + b12, folate, thiamine and referral to grounds and nursery specialist. T bili not as responsive to available treatment so pt was transferred to [facility]. Date of Discharge: 10/27/19 Praveen Valles MD Minutes to complete discharge: 40 Discharge Summary Problems reviewed: Yes Reason For Visit: URINARY TRACT INFECTION,HEPATIC CIRRHOSIS,ELEVATED Condition: Stable - Instructions Disposition: TRANSFER ACUTE CARE/OTHER HOSP - Home Medications Comprehensive Discharge Medication List: Ambulatory Orders Folic Acid 1 mg PO DAILY 10/24/19 Furosemide 20 mg PO DAILY 10/24/19 Glipizide 10 mg PO BID 10/24/19 Metoprolol Succinate [Toprol Xl] 25 mg PO DAILY 10/24/19 This patient is new to me today: No Emergency Visit: No Critical Care patient: No - Discharge Referral Referred to [facility] Med P.C.: No ATTENDING PHYSICIAN STATEMENT I saw and evaluated the patient. I reviewed the resident's note and discussed the case with the resident. I agree with the resident's findings and plan as documented. SUBJECTIVE: OBJECTIVE: ASSESSMENT AND PLAN:
== END 2019-10-26 18:28 | disposition short-term general hospital (02) | DRG 444 ==
LOC: JER 15:14 → JERBED 22:12 → J4W 10-25 00:34
PROVIDERS: ADMIT Internal Medicine; ATTEND Internal Medicine
PROC: 30233R1 Transfusion of Nonautologous Platelets into Peripheral Vein, Percutaneous Approach (ICD-10-PCS; principal; 2019-10-25)
DX: K80.00 Calculus of gallbladder with acute cholecystitis without obstruction (principal); I81 Portal vein thrombosis; E87.2 Acidosis; N39.0 Urinary tract infection, site not specified; I24.8 Other forms of acute ischemic heart disease; N17.9 Acute kidney failure, unspecified; I85.00 Esophageal varices without bleeding; K76.6 Portal hypertension; D68.9 Coagulation defect, unspecified; I48.91 Unspecified atrial fibrillation; F10.10 Alcohol abuse, uncomplicated; K70.31 Alcoholic cirrhosis of liver with ascites; E11.9 Type 2 diabetes mellitus without complications; D69.6 Thrombocytopenia, unspecified; D56.3 Thalassemia minor; R16.1 Splenomegaly, not elsewhere classified; K70.40 Alcoholic hepatic failure without coma; D72.829 Elevated white blood cell count, unspecified; R74.0 Nonspecific elevation of levels of transaminase and lactic acid dehydrogenase [LDH]; I35.0 Nonrheumatic aortic (valve) stenosis
CPT/HCPCS: 36415; 36430; 36511; 71045-TC-FY; 74177-TC; 76705-TC; 80053; 80307; 81003; 82140; 82248; 82550; 82607; 82728; 82746; 82803; 82962; 83010; 83036; 83540; 83550; 83605; 83615; 83690; 83735; 84100; 84484; 85025; 85044; 85384; 85610; 85730; 86850; 86900; 86901; 87086; 93005; 93010; 93306-TC; 99285-25; J7030; P9034; P9038; Q9967